=== PATIENT | female | born 1940 | race Caucasian/White ===

== ENCOUNTER 2016-09-03 20:35 | Observation (INO) | payer BC, MEDICARE ==
[~2016-09-03] VITALS: Ht 154.9 cm; Wt 75.0 kg
[~2016-09-03 20:35] MED LIST: ASPI81TA11 PO; CLEO300C2 PO; DRON400 PO; LORTA5 PO; METO25 PO; OMPR20CCR PO; SPIR25TA PO; WARF3TAB PO; ZOCO40TA PO
[2016-09-03 20:40] VITALS: BP 195/89; PULSE 69; RESP 19; TEMP 98.6; O2SAT 95
[2016-09-03] MEDS ORDERED: ONDANSETRON HCL 4 MG/2 ML VIAL IVP ONE (20:45)
[2016-09-03] MEDS ORDERED: SODIUM CHLORIDE 0.9% FLUSH 5 ML FLUSH IVF PRN (20:45)
[2016-09-03 20:49] VITALS: RESP 12; O2SAT 96
[2016-09-03 20:50] VITALS: BP 166/78; PULSE 64; RESP 12; O2SAT 95
--- NOTE | 2016-09-03 20:50 | PD ---
HPI Chief Complaint: General Weakness Time Seen by Provider: 22:00 Travel History International Travel<30 days: No Contact w/Intl Traveler<30days: No Traveled to known affect area: No History of Present Illness HPI 75-year-old female presents via EMS for evaluation of headache, generalized weakness, dizziness. She reports that she has had a headache intermittently for the past week. For the past 2 days she has been having some generalized weakness. Today symptoms worsened which prompted evaluation. She reports an aching pain in the right parietal region of her head that is constant with no alleviating factors. She endorses lightheadedness, generalized weakness, presyncope symptoms. She reports that today she was walking her house and she felt like she was going to pass out. She reports that she lay down on the couch and she was told by her son that she lost consciousness. She reports a previous sensation of tingling sensation on her lips which has since resolved. She does endorse nausea, 2 episodes of vomiting today as well. She denies any blurred vision, chest pain or shortness of breath, focal weakness or numbness or tingling in the extremities, dysarthria, abdominal pain, dysuria, recent illness, rash. The patient has a history of paroxysmal atrial fibrillation with pacemaker implantation, hypertension, CVA, TIA, migraines, on Coumadin. Her rn intensive care unit is Dr. Quinonez. Her primary care physician is Dr. Robson Suresh. She has no other complaints at this time. PFSH Past Medical History Hx Anticoagulant Therapy: Yes Arthritis: Yes (RA) Asthma: No Atrial Fibrillation: Yes Autoimmune Disease: No Blood Disorders: No Anxiety: No Depression: No Heart Rhythm Problems: Yes Cancer: No Cardiac Catheterization: Yes Cardiovascular Problems: Yes (HTN, A-FIB) High Cholesterol: Yes Chemotherapy: No Chest Pain: Yes Congestive Heart Failure: No COPD: No Cerebrovascular Accident: Yes Diabetes: No Diminished Hearing: No Endocrine: No Fibromyalgia: Yes Gastrointestinal Disorders: Yes (NAUSEA 5 DAYS) GERD: Yes Glaucoma: No Genitourinary: No Headaches: Yes (MIGRAINE) Hepatitis: No Hiatal Hernia: No Hypertension: Yes Immune Disorder: No Implanted Vascular Access Dvce: Yes Kidney Stones: No Musculoskeletal: Yes (RT ARM/LEG WEAKER THAN LEFT (NOT NEW)) Neurologic: Yes (CVA 1991, 2013) Psychiatric: No Reproductive: No Respiratory: No Immunizations Current: Yes Migraines: Yes Myocardial Infarction: No Radiation Therapy: No Renal Failure: No Seizures: No Sickle Cell Disease: No Sleep Apnea: No Thyroid Disease: No Triglycerides - High: Yes Ulcer: No PNEUMOCCOCAL Vaccine (Year): 2009 Menopausal: Yes Past Surgical History Abdominal Surgery: No AICD: No Arteriovenous Shunt: No Body Medical Devices: PACEMAKER DECEMBER 2014 Cardiac Surgery: Yes (pacer december 2014) Coronary Artery Bypass Graft: No Ear Surgery: No Endocrine Surgery: No Eye Surgery: No Genitourinary Surgery: No Gynecologic Surgery: No Insulin Pump: No Joint Replacement: No Oral Surgery: No Pacemaker: Yes Thoracic Surgery: No Other Surgery: Yes (PACEMAKER) Social History Alcohol Use: No Tobacco Use: No Substance Use: No Allergies-Medications (Allergen,Severity, Reaction): Coded Allergies: Ancef (Unverified Allergy, Severe, 09/03/16) Tetanus Toxoid (Verified Allergy, Severe, swells, 09/03/16) Vancomycin (Verified Allergy, Severe, Rash, 09/03/16) Flu Vaccine (Verified Allergy, Intermediate, PT STATES SHE RECEIVED FLU VAC THIS YEAR WITH NO REACTION, 09/03/16) MRI PRECAUTION (Verified Adverse Reaction, Severe, 09/03/16) PATIENT HAS A NON COMPATIBLE PACEMAKER THAT WAS PLACED AFTER LAST MRI ON 10/30/2014 EG Reported Meds & Prescriptions Reported Meds & Active Scripts Active Reported Warfarin 3 Mg Tab 3 Mg PO DAILY Spironolactone 25 Mg Tab 25 Mg PO BIDPC Zocor (Simvastatin) 40 Mg Tab 40 Mg PO HS Prilosec (Omeprazole) 20 Mg Cap 20 Mg PO DAILY Metoprolol Tartrate 25 Mg Tab 25 Mg PO BID Aspirin 81 Mg Chew 81 Mg CHEW DAILY Review of Systems Except as stated in HPI: all other systems reviewed are Neg Physical Exam Narrative GENERAL: Pleasant well-developed well-nourished female in no acute distress answering questions appropriately. SKIN: Warm and dry. HEAD: Atraumatic. Normocephalic. EYES: Pupils equal and round. No scleral icterus. No injection or drainage. ENT: No nasal bleeding or discharge. Mucous membranes pink and moist. NECK: Trachea midline. No JVD. CARDIOVASCULAR: Regular rate and rhythm. No murmur appreciated. RESPIRATORY: No accessory muscle use. Clear to auscultation. Breath sounds equal bilaterally. GASTROINTESTINAL: Abdomen soft, non-tender, nondistended. Hepatic and splenic margins not palpable. MUSCULOSKELETAL: No obvious deformities. No edema. NEUROLOGICAL: Awake and alert. No obvious cranial nerve deficits. Motor grossly within normal limits. Normal speech. No dysarthria. Normal finger-nose , heel to serna. Normal mesh man strength, 5 out of 5 muscle strength in dorsi and plantar flexion bilaterally. PSYCHIATRIC: Appropriate mood and affect; insight and judgment normal. Data Data Last Documented VS Vital Signs Date Time Temp Pulse Resp B/P Pulse Ox O2 Delivery O2 Flow Rate FiO2 09/03/16 20:50 64 12 166/78 95 Room Air 09/03/16 20:40 98.6 Orders Electrocardiogram (09/03/16 20:45) Complete Blood Count With Diff (09/03/16 20:45) Comprehensive Metabolic Panel (09/03/16 20:45) Magnesium (Mg) (09/03/16 20:45) Ckmb (Isoenzyme) Profile (09/03/16 20:45) Troponin I (09/03/16 20:45) Act Partial Throm Time (Ptt) (09/03/16 20:45) Prothrombin Time / Inr (Pt) (09/03/16 20:45) Ct Brain W/O Iv Contrast(Rout) (09/03/16 20:45) Ecg Monitoring (09/03/16 20:45) Iv Access Insert/Monitor (09/03/16 20:45) Oximetry (09/03/16 20:45) Sodium Chloride 0.9% Flush (Ns Flush) (09/03/16 20:45) Ondansetron Inj (Zofran Inj) (09/03/16 20:45) Morphine Inj (Morphine Inj) (09/03/16 21:15) Westergren Sedimentation Rate (09/03/16 21:17) Admit Order (Ed Use Only) (09/03/16 22:50) Labs Laboratory Tests Test 09/03/16 21:20 White Blood Count 10.2 TH/MM3 Red Blood Count 4.94 MIL/MM3 Hemoglobin 14.7 GM/DL Hematocrit 43.8 % Mean Corpuscular Volume 88.7 FL Mean Corpuscular Hemoglobin 29.7 PG Mean Corpuscular Hemoglobin 33.5 % Concent Red Cell Distribution Width 16.3 % Platelet Count 264 TH/MM3 Mean Platelet Volume 10.2 FL Neutrophils (%) (Auto) 53.9 % Lymphocytes (%) (Auto) 29.6 % Monocytes (%) (Auto) 14.9 % Eosinophils (%) (Auto) 0.4 % Basophils (%) (Auto) 1.2 % Neutrophils # (Auto) 5.5 TH/MM3 Lymphocytes # (Auto) 3.0 TH/MM3 Monocytes # (Auto) 1.5 TH/MM3 Eosinophils # (Auto) 0.0 TH/MM3 Basophils # (Auto) 0.1 TH/MM3 CBC Comment DIFF FINAL Differential Comment Erythrocyte Sedimentation Rate 4 mm/hr Prothrombin Time 23.7 SEC Prothromb Time International 2.1 RATIO Ratio Activated Partial 37.3 SEC Thromboplast Time Sodium Level 132 MEQ/L Potassium Level 3.9 MEQ/L Chloride Level 96 MEQ/L Carbon Dioxide Level 27.6 MEQ/L Anion Gap 8 MEQ/L Blood Urea Nitrogen 18 MG/DL Creatinine 1.17 MG/DL Estimat Glomerular Filtration 45 ML/MIN Rate Random Glucose 101 MG/DL Calcium Level 8.8 MG/DL Magnesium Level 2.2 MG/DL Total Bilirubin 0.4 MG/DL Aspartate Amino Transf 37 U/L (AST/SGOT) Alanine Aminotransferase 57 U/L (ALT/SGPT) Alkaline Phosphatase 90 U/L Total Creatine Kinase 59 U/L Troponin I LESS THAN 0.02 NG/ML Total Protein 7.4 GM/DL Albumin 3.5 GM/DL MDM Medical Decision Making Medical Screen Exam Complete: Yes Emergency Medical Condition: Yes Medical Record Reviewed: Yes Interpretation(s) CT of the brain reveals no acute abnormalities. EKG reveals sinus rhythm, ST depression in V5, first-degree AV block with a [place] interval of 251 INR 2.1 CMP sodium 132, chloride 96, creatinine 1.17, ALT 57 Troponin within normal limits CK within normal limits CBC unremarkable Differential Diagnosis Subarachnoid hemorrhage, migraine, syncope, arrhythmia, electrolyte abnormalities, dehydration, symptomatic anemia, CVA, TIA, ACS, aortic dissection , temporal arteritis Narrative Course 75-year-old female presents with headache for one week which has been worsening , generalized weakness, syncope this afternoon. Physical examination reveals no focal neurologic deficits. She has tenderness to palpation along the right scalp and right alevism region. No history of temporal arteritis, polymyalgia rheumatica. The patient was placed on ECG monitoring. Twelve-lead ECG was ordered. The patient was given Zofran, morphine for discomfort. CT of the brain, basic lab work has been ordered. The patient's laboratory imaging studies have been reviewed and are reassuring. The patient does have residual mild headache. Given the patient's significant comorbidities the plan is to admit the patient for observation. Procedures EKG Prior to Arrival: Yes Diagnosis Primary Impression: Syncope Qualified Code: R55 - Syncope, unspecified syncope type Additional Impressions: Cephalgia Qualified Code: R51 - Nonintractable headache, unspecified chronicity pattern , unspecified headache type Generalized weakness Admitting Information Admitting Physician Requests: Observation Gigi Hubbard Sep 03, 2016 20:50
[2016-09-03] MEDS ORDERED: SPIR25TA PO (20:55)
[2016-09-03] MEDS ORDERED: ZOCO40TA PO (20:55)
[2016-09-03] MEDS ORDERED: ASPI81CH CHEW (20:55)
[2016-09-03] MEDS ORDERED: PRIL20CA9 PO (20:55)
[2016-09-03] MEDS ORDERED: METO25TA3 PO (20:55)
[2016-09-03] MEDS ORDERED: WARF-58 PO (20:55)
[2016-09-03] MEDS ORDERED: MORPHINE SULFATE 4 MG/ML INJ IV PUSH ONE (21:15)
[2016-09-03 21:38] LABS: AUTOMATED NEUTROPHIL # 5.5 TH/MM3 (1.8-7.7); BASOPHIL # 0.1 TH/MM3 (0-0.2); BASOPHIL % 1.2 % (0.0-2.0); EOSINOPHIL % 0.4 % (0.0-4.0); HEMATOCRIT 43.8 % (35.0-46.0); HEMO FLAGS DIFF FINAL; LYMPH % 29.6 % (9.0-44.0); MEAN CELL VOLUME 88.7 FL (80.0-100.0); MEAN CORPUSCULAR HEMOGLOBIN 29.7 PG (27.0-34.0); MEAN CORPUSCULAR HGB CONC 33.5 % (32.0-36.0); MONO % 14.9 % (0.0-8.0); NEUT % 53.9 % (16.0-70.0); PLATELET COUNT 264 TH/MM3 (150-450); RED BLOOD COUNT 4.94 MIL/MM3 (4.00-5.30); RED CELL DISTRIBUTION WIDTH 16.3 % (11.6-17.2); WHITE BLOOD COUNT 10.2 TH/MM3 (4.0-11.0)
--- NOTE | 2016-09-03 21:43 | RADRPT ---
EXAM DATE/TIME: 09/03/2016 20:57 [facility] COMPARISON: CT BRAIN W/O CONTRAST, March 02, 2015, 11:58. INDICATIONS : Cephalgia. RADIATION DOSE: 46.95 CTDIvol (mGy) MEDICAL HISTORY : Cerebrovascular disease. Hypertension. Cardiovascular diseaseRheumatoid arthritis SURGICAL HISTORY : None. ENCOUNTER: Initial ACUITY: 1 day PAIN SCALE: 5/10 LOCATION: cranial TECHNIQUE: Multiple contiguous axial images were obtained of the head. Using automated exposure control and adj ustment of the mA and/or kV according to patient size, radiation dose was kept as low as reasonably a chievable to obtain optimal diagnostic quality images. FINDINGS: CEREBRUM: The ventricles are normal for age. No evidence of midline shift, mass lesion, hemorrhage or acute in farction. No extra-axial fluid collections are seen. POSTERIOR FOSSA: The cerebellum and brainstem are intact. The 4th ventricle is midline. The cerebellopontine angle i s unremarkable. EXTRACRANIAL: The visualized portion of the orbits is intact. SKULL: The calvaria is intact. No evidence of skull fracture. CONCLUSION: Normal examination for a patient of this age. No significant change has occurred. Donaldo Woods MD on September 03, 2016 at 21:40 Board Certified Radiologist. This report was verified electronically.
[2016-09-03 21:55] LABS: APTT (PATIENT) 37.3 SEC (24.3-30.1); INTERNATIONAL NORMALIZED RATIO 2.1 RATIO; PROTHROMBIN TIME - PATIENT 23.7 SEC (9.8-11.6)
[2016-09-03 22:06] VITALS: BP 156/80; PULSE 51; RESP 12; O2SAT 63; O2SAT 93
[2016-09-03 22:07] LABS: ALKALINE PHOSPHATASE 90 U/L (45-117); ALT (GPT) 57 U/L (10-53); ANION GAP 8 MEQ/L (5-15); AST (GOT) 37 U/L (15-37); BICARBONATE 27.6 MEQ/L (21.0-32.0); BLOOD UREA NITROGEN 18 MG/DL (7-18); CHLORIDE 96 MEQ/L (98-107); GLOMERULAR FILTRATION RATE 45 ML/MIN (>89); MAGNESIUM 2.2 MG/DL (1.5-2.5); POTASSIUM 3.9 MEQ/L (3.5-5.1); SODIUM (NA) 132 MEQ/L (136-145); TOTAL BILIRUBIN ADULT 0.4 MG/DL (0.2-1.0)
[2016-09-03 22:10] LABS: CREATINE KINASE 59 U/L (26-192)
--- NOTE | 2016-09-03 22:33 | PD ---
Data Data Last Documented VS Vital Signs Date Time Temp Pulse Resp B/P Pulse Ox O2 Delivery O2 Flow Rate FiO2 09/03/16 20:50 64 12 166/78 95 Room Air 09/03/16 20:40 98.6 Orders Electrocardiogram (09/03/16 20:45) Complete Blood Count With Diff (09/03/16 20:45) Comprehensive Metabolic Panel (09/03/16 20:45) Magnesium (Mg) (09/03/16 20:45) Ckmb (Isoenzyme) Profile (09/03/16 20:45) Troponin I (09/03/16 20:45) Act Partial Throm Time (Ptt) (09/03/16 20:45) Prothrombin Time / Inr (Pt) (09/03/16 20:45) Ct Brain W/O Iv Contrast(Rout) (09/03/16 20:45) Ecg Monitoring (09/03/16 20:45) Iv Access Insert/Monitor (09/03/16 20:45) Oximetry (09/03/16 20:45) Sodium Chloride 0.9% Flush (Ns Flush) (09/03/16 20:45) Ondansetron Inj (Zofran Inj) (09/03/16 20:45) Morphine Inj (Morphine Inj) (09/03/16 21:15) Westergren Sedimentation Rate (09/03/16 21:17) Labs Laboratory Tests Test 09/03/16 21:20 White Blood Count 10.2 TH/MM3 Red Blood Count 4.94 MIL/MM3 Hemoglobin 14.7 GM/DL Hematocrit 43.8 % Mean Corpuscular Volume 88.7 FL Mean Corpuscular Hemoglobin 29.7 PG Mean Corpuscular Hemoglobin 33.5 % Concent Red Cell Distribution Width 16.3 % Platelet Count 264 TH/MM3 Mean Platelet Volume 10.2 FL Neutrophils (%) (Auto) 53.9 % Lymphocytes (%) (Auto) 29.6 % Monocytes (%) (Auto) 14.9 % Eosinophils (%) (Auto) 0.4 % Basophils (%) (Auto) 1.2 % Neutrophils # (Auto) 5.5 TH/MM3 Lymphocytes # (Auto) 3.0 TH/MM3 Monocytes # (Auto) 1.5 TH/MM3 Eosinophils # (Auto) 0.0 TH/MM3 Basophils # (Auto) 0.1 TH/MM3 CBC Comment DIFF FINAL Differential Comment Prothrombin Time 23.7 SEC Prothromb Time International 2.1 RATIO Ratio Activated Partial 37.3 SEC Thromboplast Time Sodium Level 132 MEQ/L Potassium Level 3.9 MEQ/L Chloride Level 96 MEQ/L Carbon Dioxide Level 27.6 MEQ/L Anion Gap 8 MEQ/L Blood Urea Nitrogen 18 MG/DL Creatinine 1.17 MG/DL Estimat Glomerular Filtration 45 ML/MIN Rate Random Glucose 101 MG/DL Calcium Level 8.8 MG/DL Magnesium Level 2.2 MG/DL Total Bilirubin 0.4 MG/DL Aspartate Amino Transf 37 U/L (AST/SGOT) Alanine Aminotransferase 57 U/L (ALT/SGPT) Alkaline Phosphatase 90 U/L Total Creatine Kinase 59 U/L Troponin I LESS THAN 0.02 NG/ML Total Protein 7.4 GM/DL Albumin 3.5 GM/DL MDM Supervised Visit with JEROME: Yes Narrative Course I, Dr. Purdy, have reviewed the advance practice practioner's documentation and am in agreement, met with the patient face to face, made the diagnosis, and the medical decision making was done by me. *My assessment and Findings: 75-year-old female with history of A. fib on Coumadin status post pacemaker, HTN, previous CVA/TIA here with generalized weakness, dizziness, right sided headache and syncopal episode. No chest pain, shortness of breath. Patient's neurologic examination is unremarkable, nonfocal. She complains of her right occipital parietal headache, but on evaluation by our PA she did have some right temporal tenderness, not on my evaluation. Differential includes spontaneous ICH, hypercoagulability, tension headache, cluster headache, arrhythmia, electrolyte abnormality, ACS. Here patient's EKG, head CT and laboratory workup are unremarkable. ESR remains pending at the time this dictation. [facility] was paged to interrogate her pacemaker to evaluate for any arrhythmia. Patient will be admitted for telemetry monitoring and serial EKGs given her syncopal episode. Penelope Purdy MD Sep 03, 2016 22:33
--- NOTE | 2016-09-03 22:58 | HHI.HP ---
HPI Service [facility] Primary Care Physician Robson Suresh Admission Diagnosis syncope, cephalgia, generalized weakness Diagnoses: (1) Syncope Diagnosis: Principal (2) Generalized weakness Diagnosis: Principal (3) Migraine Diagnosis: Principal (4) Renal insufficiency Diagnosis: Principal (5) A-fib Diagnosis: Principal Travel History International Travel<30 Days: No Contact w/Intl Traveler <30 Da: No Traveled to Known Affected Are: No History of Present Illness This is a 75-year-old female with a PMH of A-fib on Coumadin, HTN, Migraine, h/ o TIA/CVA and Pacemaker ([facility]) who was brought to the ER by EMS secondary to syncopal episode and generalized weakness. Per pt, has had headache x2 days w/ progressive weakness. Today, episode of lightheadedness/dizziness and noted by Son to have syncopal event. No incontinence, no convulsions noted. Denies fever, chills, or SOB. On arrival, BP 195/89, HR 69, O2 sat 95% on RA, Afebrile. Currently BP 156/80, HR 51. CBC unremarkable. Chemistry essentially unremarkable. Troponin negative. ESR normal. CT Head with no acute findings. Pt follows thom/ Dr. Quinonez as outpatient. Review of Systems Other ROS: 14 point review of systems otherwise negative. Past Family Social History Past Medical History PMH: A-fib on Coumadin, HTN, Migraine, h/o TIA/CVA and Pacemaker ([facility]) Past Surgical History PAST SURGICAL HISTORY: Pacemaker Allergies: Coded Allergies: Ancef (Unverified Allergy, Severe, 09/03/16) Tetanus Toxoid (Verified Allergy, Severe, swells, 09/03/16) Vancomycin (Verified Allergy, Severe, Rash, 09/03/16) Flu Vaccine (Verified Allergy, Intermediate, PT STATES SHE RECEIVED FLU VAC THIS YEAR WITH NO REACTION, 09/03/16) MRI PRECAUTION (Verified Adverse Reaction, Severe, 09/03/16) PATIENT HAS A NON COMPATIBLE PACEMAKER THAT WAS PLACED AFTER LAST MRI ON 10/30/2014 EG Family History PAST FAMILY HISTORY: Reviewed. No h/o DM or CAD Social History PAST SOCIAL HISTORY: Negative for alcohol, tobacco or drugs. Physical Exam Vital Signs Vital Signs Date Time Temp Pulse Resp B/P Pulse Ox O2 Delivery O2 Flow Rate FiO2 09/03/16 20:50 64 12 166/78 95 Room Air 09/03/16 20:49 12 96 Room Air 09/03/16 20:43 68 19 96 Room Air 09/03/16 20:40 98.6 69 19 195/89 95 Physical Exam PE: GENERAL: Elderly white female in no acute distress. HEENT: PERRLA, EOMI. No scleral icterus or conjunctival pallor. No lid lag or facial droop. CARDIOVASCULAR: Regular rate and rhythm. No obvious murmurs to auscultation. No chest tenderness to palpation. RESPIRATORY: No obvious rhonchi or wheezing. Clear to auscultation. Breath sounds equal bilaterally. GASTROINTESTINAL: Abdomen soft, non-tender, nondistended. BS normal. MUSCULOSKELETAL: Extremities without clubbing, cyanosis, or edema. No obvious deformities. NEUROLOGICAL: Awake, alert and oriented x4. No focal neurologic deficits. Moving both upper and lower extremities spontaneously. Laboratory Laboratory Tests Test 09/03/16 21:20 White Blood Count 10.2 Red Blood Count 4.94 Hemoglobin 14.7 Hematocrit 43.8 Mean Corpuscular Volume 88.7 Mean Corpuscular Hemoglobin 29.7 Mean Corpuscular Hemoglobin 33.5 Concent Red Cell Distribution Width 16.3 Platelet Count 264 Mean Platelet Volume 10.2 Neutrophils (%) (Auto) 53.9 Lymphocytes (%) (Auto) 29.6 Monocytes (%) (Auto) 14.9 Eosinophils (%) (Auto) 0.4 Basophils (%) (Auto) 1.2 Neutrophils # (Auto) 5.5 Lymphocytes # (Auto) 3.0 Monocytes # (Auto) 1.5 Eosinophils # (Auto) 0.0 Basophils # (Auto) 0.1 CBC Comment DIFF FINAL Differential Comment Erythrocyte Sedimentation Rate 4 Prothrombin Time 23.7 Prothromb Time International 2.1 Ratio Activated Partial 37.3 Thromboplast Time Sodium Level 132 Potassium Level 3.9 Chloride Level 96 Carbon Dioxide Level 27.6 Anion Gap 8 Blood Urea Nitrogen 18 Creatinine 1.17 Estimat Glomerular Filtration 45 Rate Random Glucose 101 Calcium Level 8.8 Magnesium Level 2.2 Total Bilirubin 0.4 Aspartate Amino Transf 37 (AST/SGOT) Alanine Aminotransferase 57 (ALT/SGPT) Alkaline Phosphatase 90 Total Creatine Kinase 59 Troponin I LESS THAN 0.02 Total Protein 7.4 Albumin 3.5 Result Diagram: 09/03/16211909/03/162119 Assessment and Plan Problem List: (1) Syncope ICD Code: R55 Status: Acute (2) Generalized weakness ICD Code: R53.1 Status: Acute (3) Migraine ICD Code: G43.909 Status: Acute (4) A-fib ICD Code: I48.91 Status: Acute (5) Renal insufficiency ICD Code: N28.9 Status: Acute Assessment and Plan A/P: 1. Syncope: c/o dizziness/lightheadedness followed by syncopal event. CT Head w/ no acute findings, images reviewed by me. Echo 03/03/15 w/ EF 55-60%. Trop negative. Admit for Observation, place on telemetry, IVF for hydration, repeat labs in am. Pacemaker interrogated by [facility], noted to have multiple episodes of atrial tachycardia. Follows w/ Dr. Quinonez as outpatient, will consult for further recommendations. 2. Generalized Weakness: Likely related to dehydration and arrhythmia. IVF, check U/a to eval for UTI. 3. Migraine: h/o Migraine w/ right-sided headache x2 days, no visual changes. CT Head negative as above. ESR normal. Compazine/Benadryl prn. 4. A-fib: On Coumadin. INR therapeutic at 2.1. Resume Coumadin, repeat INR in am. Resume home Metoprolol. 5. DVT Prophylaxis: On Coumadin. 6. Social work for d/c planning as needed. 7. Case discussed w/ ER physician at length. Problem Qualifiers (1) Syncope: Qualified Code: R55 - Syncope, unspecified syncope type Olivia Garcia MD Sep 03, 2016 22:58
[2016-09-03] MEDS ORDERED: ACETAMINOPHEN/HYDROcodone 325 MG/5 MG TAB PO PRN (23:00)
[2016-09-03] MEDS ORDERED: diphenhydrAMINE HCL 50 MG/ML VIAL IV PUSH PRN (23:00)
[2016-09-03] MEDS ORDERED: BISACODYL 10 MG SUPP PR PRN (23:00)
[2016-09-03] MEDS ORDERED: MORPHINE SULFATE 4 MG/ML INJ IV PRN (23:00)
[2016-09-03] MEDS ORDERED: SODIUM CHLORIDE 0.9% FLUSH 5 ML FLUSH FLUSH PRN (23:00)
[2016-09-03] MEDS ORDERED: ONDANSETRON HCL 4 MG/2 ML VIAL IVP PRN (23:00)
[2016-09-03] MEDS ORDERED: PROCHLORPERAZINE INJ 10 MG/2 ML VIAL IVS PRN (23:00)
[2016-09-03] MEDS: SODIUM CHLOR 0.9% 1000 ML INJ 1,000 ML IV SCH (23:45)
[2016-09-04] VITALS (9 sets, daily range): BP systolic 107–141; BP diastolic 51–86; PULSE 56–87; RESP 14–21; TEMP 96.2–98.8; O2SAT 94–98
[2016-09-04 02:20] LABS: BLOOD, URINE NEG (NEG); COMMENT (UR) CULTURE INDICATED; CULTURE IF INDICATED CULTURE INDICATED; GLUCOSE,URINE NEG (NEG); KETONE, URINE NEG (NEG); NITRITE,URINE NEG (NEG); SQUAMOUS EPITHELIAL CELL URINE 1 /hpf (0-5); URINE COLOR LIGHT-YELLOW (YELLW/STRAW)
[2016-09-04 05:39] LABS: INTERNATIONAL NORMALIZED RATIO 2.4 RATIO; PROTHROMBIN TIME - PATIENT 27.2 SEC (9.8-11.6)
[2016-09-04] MEDS: METOPROLOL TARTRATE 25 MG TAB PO SCH ×2 (09:00→22:28)
[2016-09-04] MEDS: SODIUM CHLOR 0.9% 1000 ML INJ 1,000 ML IV SCH ×2 (09:22→19:26)
[2016-09-04] MEDS: SODIUM CHLORIDE 0.9% FLUSH 5 ML FLUSH FLUSH SCH ×2 (09:23→22:28)
[2016-09-04] MEDS: PANTOPRAZOLE SOD 20 MG DELAYED RELEASE TAB PO SCH (09:23)
[2016-09-04] MEDS: ASPIRIN 81 MG CHEW TAB CHEW SCH (09:23)
--- NOTE | 2016-09-04 12:12 | HHI.PR ---
Subjective Remarks Follow-up visit syncope, A. fib on Coumadin, HTN, history of TIA/CVA and PPM placement. She and seen today. Daughter at the bedside. Complaints of headache. Reports history of migraine headaches but states this is different. Headache is on the right temporal area, denies affecting vision. Reports lightheadedness is improved. Otherwise, denies SOB/ dyspnea. Denies chest pain, palpitations. Denies fevers, chills, n/v/d. Objective Vitals Vital Signs Date Time Temp Pulse Resp B/P Pulse Ox O2 Delivery O2 Flow Rate FiO2 09/04/16 11:29 96.2 60 17 107/58 95 09/04/16 07:49 96.8 56 18 110/51 96 09/04/16 03:24 98.0 60 20 119/59 95 09/04/16 03:00 60 09/04/16 01:35 60 14 141/67 94 Room Air 09/03/16 22:06 51 12 156/80 93 Room Air 09/03/16 20:50 64 12 166/78 95 Room Air 09/03/16 20:49 12 96 Room Air 09/03/16 20:43 68 19 96 Room Air 09/03/16 20:40 98.6 69 19 195/89 95 Result Diagram: 09/03/16211909/03/162119 Imaging Last Impressions Head CT 09/03/162044 Signed Impressions: Service Date/Time: Saturday, September 03, 2016 20:57 - CONCLUSION: Normal examination for a patient of this age. No significant change has occurred. Donaldo Woods MD Objective Remarks GENERAL: Patient is white female, well-developed, well-nourished in no acute distress. HEENT: PERRLA, EOMI. No scleral icterus or conjunctival pallor. No lid lag or facial droop. CARDIOVASCULAR: Regular rate and rhythm. No obvious murmurs to auscultation. No chest tenderness to palpation. RESPIRATORY: No obvious rhonchi or wheezing. Clear to auscultation. Breath sounds equal bilaterally. GASTROINTESTINAL: Abdomen soft, non-tender, nondistended. BS normal. MUSCULOSKELETAL: Extremities without clubbing, cyanosis, or edema. No obvious deformities. NEUROLOGICAL: Awake, alert and oriented x4. No focal neurologic deficits. Moving both upper and lower extremities spontaneously. A/P Problem List: (1) Syncope ICD Code: R55 Status: Acute (2) Generalized weakness ICD Code: R53.1 Status: Acute (3) Migraine ICD Code: G43.909 Status: Acute (4) A-fib ICD Code: I48.91 Status: Acute (5) Renal insufficiency ICD Code: N28.9 Status: Acute Assessment and Plan Patient is a 75-year-old white female who came into the hospital by EMS secondary to a syncopal episode by son and generalized weakness. Syncope: c/o dizziness/lightheadedness followed by syncopal event. - CT Head w/ no acute findings. Echo 03/03/15 w/ EF 55-60%. Trop negative x2 . - Pacemaker interrogated by [facility], noted to have multiple episodes of atrial tachycardia. - Follows w/ Dr. Quinonez as outpatient, will consult for further recommendations. Generalized Weakness: Likely related to dehydration and arrhythmia. - IVF hydration -UA with moderate leukocyte esterase. Pending cultures. Migraine: h/o Migraine w/ right-sided headache x2 days, no visual changes. - CT Head negative as above. ESR normal. Compazine/Benadryl prn. A-fib: On Coumadin. INR therapeutic at 2.1. - Resume Coumadin, repeat INR in am 2.4. - Resume home Metoprolol. Hyponatremia - NA 132, pending repeat sodium today - Patient was given IV fluids. DVT Prophylaxis: On Coumadin. Written by Jayden Mancia, acting as scribe for Dr. Gamboa on 09/04/16 at 11:14. Discharge Planning Not Ready. Awaiting cardiology recommendation. Attending Statement The documentation accurately reflects the work performed [id number] by mn, Dr. Gamboa on 09/04/16 at 11:14. Problem Qualifiers (1) Syncope: Qualified Code: R55 - Syncope, unspecified syncope type Jayden Almonte Sep 04, 2016 12:12 Robson Gamboa MD Sep 05, 2016 01:17
[2016-09-04 12:51] LABS: AUTOMATED NEUTROPHIL # 4.7 TH/MM3 (1.8-7.7); BASOPHIL # 0.1 TH/MM3 (0-0.2); BASOPHIL % 0.7 % (0.0-2.0); EOSINOPHIL # 0.1 TH/MM3 (0-0.4); EOSINOPHIL % 0.7 % (0.0-4.0); HEMO FLAGS DIFF FINAL; LYMPH % 17.6 % (9.0-44.0); LYMPHOCYTE # 1.3 TH/MM3 (1.0-4.8); MEAN CELL VOLUME 89.8 FL (80.0-100.0); MEAN CORPUSCULAR HEMOGLOBIN 30.1 PG (27.0-34.0); MEAN CORPUSCULAR HGB CONC 33.5 % (32.0-36.0); MONO % 17.7 % (0.0-8.0); NEUT % 63.3 % (16.0-70.0); PLATELET COUNT 201 TH/MM3 (150-450); RED BLOOD COUNT 4.24 MIL/MM3 (4.00-5.30); RED CELL DISTRIBUTION WIDTH 16.2 % (11.6-17.2); WHITE BLOOD COUNT 7.4 TH/MM3 (4.0-11.0)
--- NOTE | 2016-09-04 13:11 | EKG ---
Date Performed: 09/03/2016 Time Performed: 21:35:33 PTAGE: 75 years EKG: Sinus rhythm WITH FIRST DEGREE AV BLOCK MINIMAL ST DEPRESSION Since previous tracing, no significant change noted ABNORMAL ECG PREVIOUS TRACING : 05/04/2015 18.06 DOCTOR: Ismael Nuñez Interpretating Date/Time 09/04/2016 13:09:40
--- NOTE | 2016-09-04 13:12 | EKG ---
Date Performed: 09/04/2016 Time Performed: 03:27:04 PTAGE: 75 years EKG: ELECTRONIC ATRIAL PACEMAKER ELECTRONIC VENTRICULAR PACEMAKER Since previous tracing, no sig nificant change noted ABNORMAL RHYTHM ECG PREVIOUS TRACING : 09/03/2016 21.35 DOCTOR: Ismael Nuñez Interpretating Date/Time 09/04/2016 13:10:02
[2016-09-04 13:19] LABS: ALKALINE PHOSPHATASE 70 U/L (45-117); ALT (GPT) 54 U/L (10-53); ANION GAP 4 MEQ/L (5-15); AST (GOT) 43 U/L (15-37); BICARBONATE 29.9 MEQ/L (21.0-32.0); BLOOD UREA NITROGEN 13 MG/DL (7-18); CHLORIDE 104 MEQ/L (98-107); GLOMERULAR FILTRATION RATE 57 ML/MIN (>89); POTASSIUM 4.5 MEQ/L (3.5-5.1); SODIUM (NA) 138 MEQ/L (136-145); TOTAL BILIRUBIN ADULT 0.4 MG/DL (0.2-1.0)
[2016-09-04] MEDS: ACETAMINOPHEN 325 MG TAB PO PRN ×2 (16:29→22:41)
[2016-09-04] MEDS: WARFARIN SOD 3 MG TAB PO SCH (16:29)
[2016-09-04] MEDS ORDERED: PRAVASTATIN SOD 40 MG TAB PO SCH (21:00)
[2016-09-05 00:03] VITALS: BP 120/61; PULSE 88; RESP 21; TEMP 98; O2SAT 99
[2016-09-05 04:00] VITALS: BP 122/64; PULSE 87; RESP 21; TEMP 98.9; O2SAT 99
[2016-09-05] MEDS: SODIUM CHLOR 0.9% 1000 ML INJ 1,000 ML IV SCH ×2 (04:51→09:22)
[2016-09-05 08:00] VITALS: PULSE 60
[2016-09-05 08:48] VITALS: BP 144/67; PULSE 60; RESP 18; TEMP 97.2; O2SAT 94
[2016-09-05] MEDS: SODIUM CHLORIDE 0.9% FLUSH 5 ML FLUSH FLUSH SCH (09:00)
[2016-09-05] MEDS: METOPROLOL TARTRATE 25 MG TAB PO SCH (09:22)
[2016-09-05] MEDS: PANTOPRAZOLE SOD 20 MG DELAYED RELEASE TAB PO SCH (09:22)
[2016-09-05] MEDS: ASPIRIN 81 MG CHEW TAB CHEW SCH (09:23)
--- NOTE | 2016-09-05 12:19 | HHI.PR ---
Subjective Remarks Follow up for syncope with afib RVR. The patient denies any chest pain, palpitations, shortness of breath, lightheadedness or dizziness. She feels ready for discharge. Discussed with cardiology, increased metoprolol, cleared for discharge. She has no other medical complaints at this time. Objective Vitals Vital Signs Date Time Temp Pulse Resp B/P Pulse Ox O2 Delivery O2 Flow Rate FiO2 09/05/16 08:48 97.2 60 18 144/67 94 09/05/16 08:00 60 09/05/16 04:00 98.9 87 21 122/64 99 09/05/16 00:03 98.0 88 21 120/61 99 09/04/16 22:00 60 09/04/16 20:16 98.8 87 21 127/86 98 09/04/16 15:41 97.1 60 18 127/65 98 I/O 09/04/16 09/04/16 09/04/16 09/05/16 09/05/16 09/05/16 07:00 15:00 23:00 07:00 15:00 23:00 Intake Total 240 ml 845 ml Balance 240 ml 845 ml Intake Oral 240 ml 120 ml IV Total 725 ml # Voids 3 1 1 Result Diagram: 09/04/16 1201 09/04/16 1201 Imaging Last Impressions Head CT 09/03/162044 Signed Impressions: Service Date/Time: Saturday, September 03, 2016 20:57 - CONCLUSION: Normal examination for a patient of this age. No significant change has occurred. Donaldo Woods MD Objective Remarks GENERAL: Well-nourished, well-developed elderly female patient in [facility]. SKIN: Warm and dry. No rash. HEAD: Normocephalic. Atraumatic. NECK: Supple. Trachea midline. CARDIOVASCULAR: Regular rate and rhythm. S1, S2 noted. No murmur appreciated. RESPIRATORY: No accessory muscle use. Clear to auscultation. Breath sounds equal bilaterally. GASTROINTESTINAL: Abdomen soft, non-tender, nondistended. Normoactive bowel sounds x4. MUSCULOSKELETAL: No obvious deformities. Extremities without clubbing, cyanosis , or edema. NEUROLOGICAL: Awake and alert. No obvious cranial nerve deficits. Motor grossly within normal limits. Normal speech. PSYCHIATRIC: Appropriate mood and affect; insight and judgment normal. Medications and IVs Current Medications Medications (Trade) Dose Ordered Sig/Polina Route Start Time Stop Time Status Last Admin IV Flush 2 ml 2 ml UNSCH PRN IVF 09/03/16 20:45 (NS 1000 ml Inj) 1,000 ml @ 100 mls/hr Q10H IV 09/03/16 22:51 09/05/16 09:22 (NS Flush) 2 ml UNSCH PRN FLUSH 09/03/16 23:00 (NS Flush) 2 ml BID FLUSH 09/04/16 09:00 09/04/16 09:23 (Zofran Inj) 4 mg Q6H PRN IVP 09/03/16 23:00 (Dulcolax Supp) 10 mg DAILY PRN [place] 09/03/16 23:00 (Tylenol) 650 mg Q6H PRN PO 09/03/16 23:00 09/04/16 22:41 ([place] 5-325 Mg) 1 tab Q4H PRN PO 09/03/16 23:00 (Morphine Inj) 2 mg Q3H PRN IV 09/03/16 23:00 (Compazine Inj) 10 mg Q6H PRN IVS 09/03/16 23:00 09/04/16 02:39 (Benadryl Inj) 25 mg Q6H PRN IV PUSH 09/03/16 23:00 09/04/16 02:39 (Aspirin Chew) 81 mg DAILY CHEW 09/04/16 09:00 09/05/16 09:23 (Lopressor) 25 mg BID PO 09/04/16 09:00 09/05/16 09:22 (Protonix) 20 mg DAILY PO 09/04/16 09:00 09/05/16 09:22 (Coumadin) 3 mg DAILY@16 PO 09/04/16 16:00 09/04/16 16:29 (Pravachol) 80 mg HS PO 09/04/16 21:00 09/04/16 22:28 Urinary Catheter: No Vascular Central Line Catheter: No A/P Problem List: (1) Syncope ICD Code: R55 Status: Acute (2) Generalized weakness ICD Code: R53.1 Status: Acute (3) Migraine ICD Code: G43.909 Status: Acute (4) A-fib ICD Code: I48.91 Status: Acute (5) Renal insufficiency ICD Code: N28.9 Status: Acute Assessment and Plan 75-year-old white female who came into the hospital by EMS secondary to a syncopal episode by son and generalized weakness. Syncope: c/o dizziness/lightheadedness followed by syncopal event. - CT Head w/ no acute findings. Echo 03/03/15 w/ EF 55-60%. Trop negative x3. - Pacemaker interrogated by [facility], noted to have multiple episodes of atrial tachycardia, likely afib with RVR. - Follows w/ Dr. Quinonez, consulted, seen by Dr. Nuñez, increased metoprolol to 50mg bid, cleared for discharge, f/up with Dr. Quinonez as outpatient Generalized Weakness: Likely related to dehydration and arrhythmia. -IVF hydration -patient much improved, ambulating Abnormal UA -UA with moderate leukocyte esterase however urine culture with mixed gram positive, likely contaminants -no abx indicated Migraine: h/o Migraine w/ right-sided headache x2 days, no visual changes. - CT Head negative as above. ESR normal. Compazine/Benadryl prn. -migraine resolved A-fib: On Coumadin. INR therapeutic at 2.1. - Resume Coumadin, repeat INR in 2.4. - Resume home Metoprolol, cardiology increased dose to 50mg bid. Hyponatremia - NA 132 - Given IVF, now Na 138 -resolved DVT Prophylaxis: On Coumadin. Written by Kassandra Ruby, acting as scribe for Dr. Gomez on 09/05/16 at 15:17 The documentation accurately reflects the work performed [id number] by tn Dr. Gomez on 09/05/16 at 15:17 Discharge Planning Discharge patient to home Condition on discharge: Improved Heart Healthy/Coumadin Diet as tolerated Ad Luz Marina activity Rx written: metoprolol 50mg po bid Follow-up with primary care physician Dr. Suresh and first line supervisor Dr. Quinonez in 1 week Problem Qualifiers (1) Syncope: Qualified Code: R55 - Syncope, unspecified syncope type Kassandra Ruby PA-C Sep 05, 2016 12:19 Cherelle Gomez MD Sep 05, 2016 18:42
--- NOTE | 2016-09-05 15:04 | PD.CARD.PN ---
Subjective Subjective Remarks The patient denies recurrent syncope or near syncope since discharge. Feels "much better". Interrogation of device reveals some afib RVR. Objective Medications Current Medications Medications (Trade) Dose Ordered Sig/Polina Route Start Time Stop Time Status Last Admin IV Flush 2 ml 2 ml UNSCH PRN IVF 09/03/16 20:45 (NS 1000 ml Inj) 1,000 ml @ 100 mls/hr Q10H IV 09/03/16 22:51 09/05/16 09:22 (NS Flush) 2 ml UNSCH PRN FLUSH 09/03/16 23:00 (NS Flush) 2 ml BID FLUSH 09/04/16 09:00 09/04/16 09:23 (Zofran Inj) 4 mg Q6H PRN IVP 09/03/16 23:00 (Dulcolax Supp) 10 mg DAILY PRN [place] 09/03/16 23:00 (Tylenol) 650 mg Q6H PRN PO 09/03/16 23:00 09/04/16 22:41 ([place] 5-325 Mg) 1 tab Q4H PRN PO 09/03/16 23:00 (Morphine Inj) 2 mg Q3H PRN IV 09/03/16 23:00 (Compazine Inj) 10 mg Q6H PRN IVS 09/03/16 23:00 09/04/16 02:39 (Benadryl Inj) 25 mg Q6H PRN IV PUSH 09/03/16 23:00 09/04/16 02:39 (Aspirin Chew) 81 mg DAILY CHEW 09/04/16 09:00 09/05/16 09:23 (Lopressor) 25 mg BID PO 09/04/16 09:00 09/05/16 09:22 (Protonix) 20 mg DAILY PO 09/04/16 09:00 09/05/16 09:22 (Coumadin) 3 mg DAILY@16 PO 09/04/16 16:00 09/04/16 16:29 (Pravachol) 80 mg HS PO 09/04/16 21:00 09/04/16 22:28 Vital Signs / I&O Vital Signs Date Time Temp Pulse Resp B/P Pulse Ox O2 Delivery O2 Flow Rate FiO2 09/05/16 08:48 97.2 60 18 144/67 94 09/05/16 08:00 60 2/6/17 04:00 98.9 87 21 122/64 99 09/05/16 00:03 98.0 88 21 120/61 99 09/04/16 22:00 60 09/04/16 20:16 98.8 87 21 127/86 98 09/04/16 15:41 97.1 60 18 127/65 98 I/O 09/04/16 09/04/16 09/04/16 09/05/16 09/05/16 09/05/16 06:59 14:59 22:59 06:59 14:59 22:59 Intake Total 240 ml 845 ml 1006 ml Balance 240 ml 845 ml 1006 ml Intake Oral 240 ml 120 ml IV Total 725 ml 1006 ml # Voids 3 1 1 5 Physical Exam GENERAL: Obese female, no distress SKIN: Warm and dry. HEAD: Normocephalic. EYES: No scleral icterus. No injection or drainage. NECK: Supple, trachea midline. CARDIOVASCULAR: Regular rate and rhythm without murmurs, gallops, or rubs. RESPIRATORY: Breath sounds equal bilaterally. No accessory muscle use. GASTROINTESTINAL: Abdomen soft, non-tender, nondistended. MUSCULOSKELETAL: No cyanosis, or edema. BACK: Nontender without obvious deformity. No CVA tenderness. Laboratory Laboratory Tests Test 09/03/16 09/04/16 09/04/16 09/04/16 21:20 02:10 03:11 05:05 Monocytes (%) (Auto) 14.9 % (0.0-8.0) Monocytes # (Auto) 1.5 TH/MM3 (0-0.9) Prothrombin Time 23.7 SEC 27.2 SEC (9.8-11.6) (9.8-11.6) Activated Partial 37.3 SEC Thromboplast Time (24.3-30.1) Sodium Level 132 MEQ/L (136-145) Chloride Level 96 MEQ/L (98-107) Creatinine 1.17 MG/DL (0.50-1.00) Estimat Glomerular Filtration 45 ML/MIN (>89) Rate Alanine Aminotransferase 57 U/L (10-53) (ALT/SGPT) Troponin I LESS THAN 0.02 LESS THAN 0.02 NG/ML NG/ML (0.02-0.05) (0.02-0.05) Urine Leukocyte Esterase MOD (NEG) Urine WBC 23 /hpf (0-5) Test 09/04/16 12:01 Monocytes (%) (Auto) 17.7 % (0.0-8.0) Monocytes # (Auto) 1.3 TH/MM3 (0-0.9) Anion Gap 4 MEQ/L (5-15) Estimat Glomerular Filtration 57 ML/MIN (>89) Rate Calcium Level 8.2 MG/DL (8.5-10.1) Aspartate Amino Transf 43 U/L (15-37) (AST/SGOT) Alanine Aminotransferase 54 U/L (10-53) (ALT/SGPT) Troponin I LESS THAN 0.02 NG/ML (0.02-0.05) Total Protein 6.0 GM/DL (6.4-8.2) Albumin 2.8 GM/DL (3.4-5.0) Imaging Last [address] 09/03/162044 Signed Impressions: Service Date/Time: Saturday, September 03, 2016 20:57 - CONCLUSION: Normal examination for a patient of this age. No significant change has occurred. Donaldo Woods MD Assessment and Plan Assessment and Plan ASSESSMENT Syncope, episode preceded by "feeling like she was going to pass out". CT head normal. PPM interrogation shows AF with RVR Atrial fibrillation with hx of TIA, on Coumadin HTN Mild carotid stenosis PLAN: Will increase metoprolol to 50 mg BID. She will follow up with Dr. Quinonez next week in the office. Instructed to maintain BP log and call Dr. Quinonez's nurse, Luz Maria, with any concerns in the meantime. Assessment and plan discussed with Dr. Nuñez. Veronique Wright Sep 05, 2016 15:04
[2016-09-05] MEDS ORDERED: METO-309 PO (15:45)
--- NOTE | 2016-09-05 15:46 | HHI.DCPOC ---
Discharge Care Plan Diagnosis: (1) Syncope (2) A-fib Goals to Promote Your Health * To prevent worsening of your condition and complications * To maintain your health at the optimal level Directions to Meet Your Goals Take your medications as prescribed Follow your dietary instruction Follow activity as directed Keep your appointments as scheduled Take your immunizations and boosters as scheduled If your symptoms worsen call your PCP, if no PCP go to Urgent Care Center or Emergency Room Smoking is Dangerous to Your Health. Avoid second hand smoke Call the 24-hour hour crisis hotline for domestic abuse at Kassandra Ruby PA-C Sep 05, 2016 15:46 Cherelle Gomez MD Sep 05, 2016 18:42
[2016-09-05] MEDS: WARFARIN SOD 3 MG TAB PO SCH (16:05)
[2016-09-05] MEDS ORDERED: METOPROLOL TARTRATE 50 MG TAB PO SCH (21:00)
--- NOTE | 2016-09-06 09:32 | MB ---
cc: ISMAEL NUÑEZ M.D. DATE OF CONSULTATION 09/04/2016 Thank you, Jose. HISTORY OF PRESENT ILLNESS This patient is a very pleasant 75-year-old white female who has a history of atrial fibrillation on Coumadin, a history of stroke and a pacemaker. She had a syncopal episode at home. She states that this usually happens when her blood pressure is low. She has also had a headache with progressive weakness; however, her blood pressure on arrival in the emergency room was 195/89. She has had previous episodes of lightheadedness and dizziness. Apparently, according to the son, it was not a syncopal episode. No incontinence, no convulsions, no tongue biting, etc. PAST MEDICAL HISTORY 1. A-fib, status post [facility] pacemaker. 2. History of TIA and CVA. 3. Hypertension. 4. Migraines. PAST SURGICAL HISTORY Pacemaker. ALLERGIES TETANUS. ANCEF. VANCOMYCIN. MRI PRECAUTIONS. FAMILY HISTORY Noncontributory SOCIAL HISTORY Nonsmoker, nondrinker. No drugs. PHYSICAL EXAMINATION VITAL SIGNS: on examination pulse is 64, blood pressure 167/78. EYES: No xanthelasma. MOUTH: No cyanosis or pallor. NECK: No JVD. HEART: She had two heart sounds, no murmurs. CHEST: Clear. ABDOMEN: Soft. No hepatosplenomegaly. EXTREMITIES: Legs reveal no evidence of edema. NEUROLOGICAL: Exam grossly intact. SKIN: Intact. LABORATORY TESTS White count was 10.2, hemoglobin 13.7. Troponin less than 0.02. ASSESSMENT AND PLAN 1. Possible syncope. At this point CAT scan shows no problems. Apparent the pacemaker showed episodes of A-fib. 2. Generalized weakness. The patient was apparently diagnosed with dehydration. The cause of her syncope/dizziness is uncertain. INR was therapeutic yesterday. Continues on Coumadin for A-fib. At this point the patient appears to be stable. She will be discharged when better and note that her sodium level is low at 132. Other labs from today are currently pending. Electrocardiogram shows atrial pacing. Thank you for asking us to see this very pleasant lady. Ismael Nuñez MD, FRCP,FACC RAMAKRISHNA/DIAN Leiva: 09/04/2016/12:47 PM /9:17 AM
== END 2016-09-05 18:35 | disposition home or self-care (01) ==
LOC: NEPE 20:35 → NEDA 22:54 → NEPHCDU 09-04 02:10 → NEPFCDU 09-04 22:18
PROVIDERS: ADMIT Hospitalist; ATTEND Hospitalist
DX: R55 Syncope and collapse (principal); R53.1 Weakness; G43.909 Migraine, unspecified, not intractable, without status migrainosus; E86.0 Dehydration; I48.91 Unspecified atrial fibrillation; I47.1 Supraventricular tachycardia; N28.9 Disorder of kidney and ureter, unspecified; I10 Essential (primary) hypertension; E87.1 Hypo-osmolality and hyponatremia; I65.29 Occlusion and stenosis of unspecified carotid artery; K21.9 Gastro-esophageal reflux disease without esophagitis; M79.7 Fibromyalgia; E78.00 Pure hypercholesterolemia, unspecified; Z79.01 Long term (current) use of anticoagulants; Z86.73 Personal history of transient ischemic attack (TIA), and cerebral infarction without residual deficits
CPT/HCPCS: 70450; 80053; 81001; 82550; 83735; 84484; 85025; 85610; 85652; 85730; 87086; 93005; 96374; 96375; 99285; G0378; J0780; J1200; J2270; J2405; J7030

== ENCOUNTER 2017-03-08 13:32 | Emergency (ER) | payer BC ==
[~2017-03-08] VITALS: Ht 157.5 cm; Wt 95.5 kg
[~2017-03-08 13:32] MED LIST changes: +ASPI81CH CHEW; -ASPI81TA11 PO; -CLEO300C2 PO; -DRON400 PO; -LORTA5 PO; +METO-309 PO; -METO25 PO; -OMPR20CCR PO; +PRIL20CA9 PO; -SPIR25TA PO; +WARF-58 PO; -WARF3TAB PO
[2017-03-08 14:28] VITALS: BP 179/79; PULSE 61; PULSE 62; RESP 18; TEMP 98.1; O2SAT 95
--- NOTE | 2017-03-08 14:44 | PD ---
HPI Chief Complaint: General Weakness Time Seen by Provider: 14:39 Travel History International Travel<30 days: No Contact w/Intl Traveler<30days: No Traveled to known affect area: No History of Present Illness HPI Patient comes in complaining of generalized weakness over the past week. Patient reports some associated nausea and dizziness with this. Patient reports one episode of vomiting once that was nonbloody and nonbilious. Patient denies abdominal pain, change in bowel or bladder, numbness or tingling anywhere, chest pain, back pain, neck pain, change in vision, shortness of breath. Patient states she did develop a headache today, right parietal lobe occasionally shoots to the left parietal lobe. Patient's pain is sharp stabbing like in nature. Patient denies anything making this better or worse. Patient reports associated dizziness that comes and goes. Dizziness seems to improved with laying down is worse with standing. Patient reports she has a history of hemorrhagic CVA 2 years ago but is on Coumadin secondary to A. fib. PFSH Past Medical History Hx Anticoagulant Therapy: Yes Arthritis: Yes (RA) Asthma: No Atrial Fibrillation: Yes Autoimmune Disease: No Blood Disorders: No Anxiety: No Depression: No Heart Rhythm Problems: Yes (A-FIB) Cancer: No Cardiac Catheterization: Yes Cardiovascular Problems: Yes (HTN, A-FIB) High Cholesterol: Yes Chemotherapy: No Chest Pain: Yes Congestive Heart Failure: No COPD: No Cerebrovascular Accident: Yes Diabetes: No Diminished Hearing: No Endocrine: No Fibromyalgia: Yes Gastrointestinal Disorders: Yes (NAUSEA 5 DAYS) GERD: Yes Glaucoma: No Genitourinary: No Headaches: Yes (MIGRAINE) Hepatitis: No Hiatal Hernia: No Hypertension: Yes Immune Disorder: No Implanted Vascular Access Dvce: Yes Kidney Stones: No Musculoskeletal: Yes (RT ARM/LEG WEAKER THAN LEFT (NOT NEW)) Neurologic: Yes (CVA 1991, 2013) Psychiatric: No Reproductive: No Respiratory: No Immunizations Current: Yes Migraines: Yes Myocardial Infarction: No Radiation Therapy: No Renal Failure: No Seizures: No Sickle Cell Disease: No Sleep Apnea: No Thyroid Disease: No Triglycerides - High: Yes Ulcer: No PNEUMOCCOCAL Vaccine (Year): 2009 ?: Not Menopausal: Yes Past Surgical History Abdominal Surgery: No AICD: No Arteriovenous Shunt: No Body Medical Devices: PACEMAKER DECEMBER 2014 Cardiac Surgery: Yes (pacer december 2014) Coronary Artery Bypass Graft: No Ear Surgery: No Endocrine Surgery: No Eye Surgery: No Genitourinary Surgery: No Gynecologic Surgery: No Insulin Pump: No Joint Replacement: No Oral Surgery: No Pacemaker: Yes Thoracic Surgery: No Other Surgery: Yes (PACEMAKER) Social History Alcohol Use: No Tobacco Use: No Substance Use: No Allergies-Medications (Allergen,Severity, Reaction): Coded Allergies: Ancef (Unverified Allergy, Severe, 03/08/17) Tetanus Toxoid (Verified Allergy, Severe, swells, 03/08/17) Vancomycin (Verified Allergy, Severe, Rash, 03/08/17) Flu Vaccine (Verified Allergy, Intermediate, PT STATES SHE RECEIVED FLU VAC THIS YEAR WITH NO REACTION, 03/08/17) MRI PRECAUTION (Verified Adverse Reaction, Severe, 03/08/17) PATIENT HAS A NON COMPATIBLE PACEMAKER THAT WAS PLACED AFTER LAST MRI ON 10/30/2014 EG Reported Meds & Prescriptions Reported Meds & Active Scripts Active Reported Amiodarone (Amiodarone HCl) 200 Mg Tab 200 Mg PO AC LUNCH Spironolactone 25 Mg Tab 25 Mg PO AC LUNCH Metoprolol Tartrate 25 Mg Tab 25 Mg PO BID Omeprazole 20 Mg Tab 20 Mg PO DAILY PRN Warfarin 3 Mg Tab 1.5 Mg PO MONDAY @ 1800 Warfarin 3 Mg Tab 3 Mg PO WE @ 1800 Zocor (Simvastatin) 40 Mg Tab 40 Mg PO HS Aspirin 81 Mg Chew 81 Mg CHEW DAILY Review of Systems Except as stated in HPI: all other systems reviewed are Neg Physical Exam Narrative GENERAL: Well-developed, overly nourished, in no acute distress, and non-ill appearing. SKIN: Focused skin assessment warm and dry. HEAD: Atraumatic. Normocephalic. EYES: Pupils equal and round. EOMI. No scleral icterus. No injection or drainage. ENT: No nasal bleeding or discharge. Mucous membranes pink and moist. NECK: Trachea midline. No JVD. Supple. No nuclear rigidity. CARDIOVASCULAR: Regular rate and rhythm. No murmur appreciated. RESPIRATORY: No accessory muscle use. No respiratory distress. Clear to auscultation. Breath sounds equal bilaterally. GASTROINTESTINAL: Abdomen soft, non-tender, nondistended, and no guarding. Hepatic and splenic margins not palpable. Normal bowel sounds 4. No pulsatile mass. MUSCULOSKELETAL: No obvious deformities. No clubbing. No cyanosis. No edema. Full range of motion. NEUROLOGICAL: Awake and alert. No obvious cranial nerve deficits. Motor grossly within normal limits. Normal speech. No facial droop. Gross fall and eyebrows. Symmetrical smile. PSYCHIATRIC: Appropriate mood and affect; insight and judgment normal. Data Data Last Documented VS Vital Signs Date Time Temp Pulse Resp B/P Pulse Ox O2 Delivery O2 Flow Rate FiO2 03/08/17 18:30 62 18 126/60 96 03/08/17 16:24 97.8 Nasal Cannula 2 Orders Electrocardiogram (03/08/17 14:32) Basic Metabolic Panel (Bmp) (03/08/17 14:32) Complete Blood Count With Diff (03/08/17 14:32) Creatine Kinase (Cpk) (03/08/17 14:32) Troponin I (03/08/17 14:32) Thyroid Stimulating Hormone (03/08/17 14:32) Urinalysis - C+S If Indicated (03/08/17 14:32) Chest, Single Ap (03/08/17 14:32) Ct Brain W/O Iv Contrast(Rout) (03/08/17 14:32) Blood Glucose (03/08/17 14:32) Ecg Monitoring (03/08/17 14:32) Iv Access Insert/Monitor (03/08/17 14:32) Oximetry (03/08/17 14:32) Sodium Chloride 0.9% Flush (Ns Flush) (03/08/17 14:45) Drug Screen, Random Urine (03/08/17 14:32) Alcohol (Ethanol) (03/08/17 14:32) Labs Laboratory Tests Test 03/08/17 03/08/17 14:30 17:35 White Blood Count 8.1 TH/MM3 Red Blood Count 4.77 MIL/MM3 Hemoglobin 14.0 GM/DL Hematocrit 43.1 % Mean Corpuscular Volume 90.2 FL Mean Corpuscular Hemoglobin 29.4 PG Mean Corpuscular Hemoglobin 32.6 % Concent Red Cell Distribution Width 16.2 % Platelet Count 269 TH/MM3 Mean Platelet Volume 9.5 FL Neutrophils (%) (Auto) 60.5 % Lymphocytes (%) (Auto) 20.9 % Monocytes (%) (Auto) 16.8 % Eosinophils (%) (Auto) 0.8 % Basophils (%) (Auto) 1.0 % Neutrophils # (Auto) 4.9 TH/MM3 Lymphocytes # (Auto) 1.7 TH/MM3 Monocytes # (Auto) 1.4 TH/MM3 Eosinophils # (Auto) 0.1 TH/MM3 Basophils # (Auto) 0.1 TH/MM3 CBC Comment DIFF FINAL Differential Comment Sodium Level 133 MEQ/L Potassium Level 4.5 MEQ/L Chloride Level 100 MEQ/L Carbon Dioxide Level 26.2 MEQ/L Anion Gap 7 MEQ/L Blood Urea Nitrogen 15 MG/DL Creatinine 1.05 MG/DL Estimat Glomerular Filtration 51 ML/MIN Rate Random Glucose 87 MG/DL Calcium Level 8.7 MG/DL Total Creatine Kinase 32 U/L Troponin I LESS THAN 0.02 NG/ML Thyroid Stimulating Hormone 2.540 uIU/ML 3rd Gen Ethyl Alcohol Level LESS THAN 3 MG/DL Urine Color YELLOW Urine Turbidity CLEAR Urine pH 6.5 Urine Specific [place] 1.010 Urine Protein NEG mg/dL Urine Glucose (UA) NEG mg/dL Urine Ketones NEG mg/dL Urine Occult Blood NEG Urine Nitrite NEG Urine Bilirubin NEG Urine Urobilinogen LESS THAN 2.0 MG/DL Urine Leukocyte Esterase TRACE Urine RBC 1 /hpf Urine WBC 2 /hpf Urine Squamous Epithelial <1 /hpf Cells Microscopic Urinalysis Comment CATH-CULT NOT IND MDM Medical Decision Making Medical Screen Exam Complete: Yes Emergency Medical Condition: Yes Interpretation(s) EKG reviewed by Dr. Anaya shows sinus rhythm with ventricular rate of 61. No STEMI. Chest x-ray by the radiologist shows: Pacemaker, compensated cardiomegaly otherwise negative. CT head read by the radiologist shows: No acute process. Differential Diagnosis Vertigo, electrolyte abnormality, dehydration, CVA, near-syncope, generalized weakness, anemia, pneumonia, acute coronary syndrome, arrhythmia, other Narrative Course 1455 patient reassessed at 9 a little bit better 100%. Discussed all laboratory and radiological management patient. UA still pending. 1620 patient reassessed feeling better. Urinalysis resulted. Patient feeling better and wanting to go home. Patient in no obvious distress upon re-evaluation. All pertinent laboratory/ Radiology result(s) discussed with patient. Discussed patient with Dr. Anaya prior to discharge, who is in agreement with plan of care and disposition. Any questions/concerns in reference to patient diagnosis/ condition discussed and clarified prior to patient's discharge. Reinforced sheer importance of close follow up with patient's primary physician or primary care clinic. Instructed patient to return to ED immediately, if symptoms return/ worsen. Pt showed understanding of above instructions. Further instructions and recommendations were detailed in discharge paperwork. Pt ambulated without difficulty out of ED at discharge. Diagnosis Primary Impression: Generalized weakness Patient Instructions: General Instructions, Weakness (ED) Additional Instructions: Follow-up with your primary care physician one to 2 days for reevaluation. Return to the emergency department if symptoms get worse. Disposition: 01 DISCHARGE HOME Condition: Stable Florin Myers Mar 08, 2017 14:44
[2017-03-08] MEDS ORDERED: SODIUM CHLORIDE 0.9% FLUSH 5 ML FLUSH IV FLUSH PRN (14:45)
[2017-03-08] MEDS ORDERED: WARF-58 PO (15:07)
--- NOTE | 2017-03-08 15:13 | RADRPT ---
EXAM DATE/TIME: 03/08/2017 15:01 [facility] COMPARISON: MRI BRAIN W/O CONTRAST, October 30, 2014, 9:32. CT BRAIN W/O CONTRAST, September 03, 2016, 20:57. INDICATIONS : Headache. RADIATION DOSE: 58.02 CTDIvol (mGy) MEDICAL HISTORY : Stroke. Gastroesophageal reflux disease. SURGICAL HISTORY : None. ENCOUNTER: Initial ACUITY: 1 day PAIN SCALE: 8/10 LOCATION: Right frontal TECHNIQUE: Multiple contiguous axial images were obtained of the head. Using automated exposure control and adj ustment of the mA and/or kV according to patient size, radiation dose was kept as low as reasonably a chievable to obtain optimal diagnostic quality images. DICOM format image data is available electro nically for review and comparison. FINDINGS: CEREBRUM: The ventricles are normal for age. No evidence of midline shift, mass lesion, hemorrhage or acute in farction. No extra-axial fluid collections are seen. POSTERIOR FOSSA: The cerebellum and brainstem are intact. The 4th ventricle is midline. The cerebellopontine angle i s unremarkable. EXTRACRANIAL: The visualized portion of the orbits is intact. SKULL: The calvaria is intact. No evidence of skull fracture. CONCLUSION: Negative CT scan of the head for acute process. Daniel Pozo MD FACR on March 08, 2017 at 15:11 Board Certified Radiologist. This report was verified electronically.
[2017-03-08] MEDS ORDERED: METO25TA3 PO (15:14)
[2017-03-08] MEDS ORDERED: OMEP20TA PO (15:14)
[2017-03-08] MEDS ORDERED: AMIO200T PO (15:15)
[2017-03-08] MEDS ORDERED: SPIR25TA PO (15:15)
--- NOTE | 2017-03-08 15:15 | RADRPT ---
EXAM DATE/TIME: 03/08/2017 14:53 [facility] COMPARISON: CHEST SINGLE AP, March 02, 2015, 11:30. INDICATIONS : Short of breath and dizzy since yesterday. MEDICAL HISTORY : Cerebrovascular disease. Hypertension. Cardiovascular diseaseRheumatoid SURGICAL HISTORY : Pacemaker. ENCOUNTER: Initial ACUITY: 1 day PAIN SCORE: 0/10 LOCATION: Bilateral chest FINDINGS: Pacemaker is implanted in the left chest. The heart is minimally enlarged. The pulmonary vascularit y is normal. The portion of the bony skeleton visualized is unremarkable. CONCLUSION: Pacemaker, compensated cardiomegaly otherwise negative. Daniel Pozo MD FACR on March 08, 2017 at 15:13 Board Certified Radiologist. This report was verified electronically.
[2017-03-08 15:20] LABS: AUTOMATED NEUTROPHIL # 4.9 TH/MM3 (1.8-7.7); BASOPHIL # 0.1 TH/MM3 (0-0.2); EOSINOPHIL # 0.1 TH/MM3 (0-0.4); EOSINOPHIL % 0.8 % (0.0-4.0); HEMATOCRIT 43.1 % (35.0-46.0); HEMO FLAGS DIFF FINAL; LYMPH % 20.9 % (9.0-44.0); LYMPHOCYTE # 1.7 TH/MM3 (1.0-4.8); MEAN CELL VOLUME 90.2 FL (80.0-100.0); MEAN CORPUSCULAR HEMOGLOBIN 29.4 PG (27.0-34.0); MEAN CORPUSCULAR HGB CONC 32.6 % (32.0-36.0); MONO % 16.8 % (0.0-8.0); NEUT % 60.5 % (16.0-70.0); PLATELET COUNT 269 TH/MM3 (150-450); RED BLOOD COUNT 4.77 MIL/MM3 (4.00-5.30); RED CELL DISTRIBUTION WIDTH 16.2 % (11.6-17.2); WHITE BLOOD COUNT 8.1 TH/MM3 (4.0-11.0)
[2017-03-08 15:37] LABS: ANION GAP 7 MEQ/L (5-15); BICARBONATE 26.2 MEQ/L (21.0-32.0); BLOOD UREA NITROGEN 15 MG/DL (7-18); CHLORIDE 100 MEQ/L (98-107); GLOMERULAR FILTRATION RATE 51 ML/MIN (>89); POTASSIUM 4.5 MEQ/L (3.5-5.1); SODIUM (NA) 133 MEQ/L (136-145)
[2017-03-08 15:39] LABS: ALCOHOL LESS THAN 3 MG/DL (0-5)
[2017-03-08 15:53] LABS: CREATINE KINASE 32 U/L (26-192)
[2017-03-08 16:24] VITALS: BP 162/67; PULSE 59; RESP 18; TEMP 97.8; O2SAT 98
[2017-03-08 18:10] LABS: BLOOD, URINE NEG (NEG); GLUCOSE,URINE NEG (NEG); KETONE, URINE NEG (NEG); NITRITE,URINE NEG (NEG); PH, URINE 6.5 (5.0-8.5); SQUAMOUS EPITHELIAL CELL URINE <1 /hpf (0-5); URINE COLOR YELLOW (YELLW/STRAW)
[2017-03-08 18:12] LABS: COMMENT (UR) CATH-CULT NOT IND; CULTURE IF INDICATED CATH CULTURE NOT IND
[2017-03-08 18:30] VITALS: BP 126/60; PULSE 62; RESP 18; O2SAT 96
--- NOTE | 2017-03-09 11:32 | EKG ---
Date Performed: 03/08/2017 Time Performed: 14:33:34 PTAGE: 76 years EKG: Sinus rhythm WITH FIRST DEGREE AV BLOCK BORDERLINE LEFT AXIS DEVIATION ABNORMAL ECG Compared to prior tracing no significant change PREVIOUS TRACING DOCTOR: Nav Bass Interpretating Date/Time 03/09/2017 11:30:20
== END 2017-03-08 19:16 | disposition home or self-care (01) ==
LOC: NEPC 13:32
DX: R53.1 Weakness (principal); Z79.01 Long term (current) use of anticoagulants; E78.00 Pure hypercholesterolemia, unspecified; I10 Essential (primary) hypertension; I48.91 Unspecified atrial fibrillation; K21.9 Gastro-esophageal reflux disease without esophagitis; M79.7 Fibromyalgia; Z86.73 Personal history of transient ischemic attack (TIA), and cerebral infarction without residual deficits; Z95.0 Presence of cardiac pacemaker
CPT/HCPCS: 70450; 71010; 80048; 80307; 81001; 82550; 84443; 84484; 85025; 93005

== ENCOUNTER 2017-09-13 12:40 | Observation (INO) | payer BC ==
[2017-09-13] VITALS (9 sets, daily range): BP systolic 114–196; BP diastolic 61–91; PULSE 56–60; RESP 14–20; TEMP 97–99; O2SAT 95–98
[~2017-09-13] VITALS: Ht 160 cm; Wt 90.0 kg
[~2017-09-13 12:40] MED LIST changes: +AMIO200T PO; +ASPI-516 CHEW; -ASPI81CH CHEW; -METO-309 PO; +METO25TA3 PO; +OMEP20TA93 PO; -PRIL20CA9 PO; +SPIR25TA PO
[2017-09-13] MEDS ORDERED: WARF-58 PO (12:57)
--- NOTE | 2017-09-13 13:08 | PD ---
HPI Chief Complaint: Syncope/Near-Syncope Time Seen by Provider: 12:52 Travel History International Travel<30 days: No Contact w/Intl Traveler<30days: No Traveled to known affect area: No History of Present Illness HPI 76-year-old female patient with history of multiple medical issues, A. fib, on Coumadin, hypertension, previous CVA, presents to the ER today brought in by EMS after she had a syncopal episode while washing dishes. Her son witnessed the event and had lowered her down, patient denies any injuries. She states that she got dizzy before it happened. She apparently had a similar episode in office last week. She denies any chest pains, trouble breathing, vomiting, diarrhea, black stools, or any other issues. Modifying Factors: None Associated Signs & Symptoms: Dizziness, syncope Risk Factors: Cardiac history PFSH Past Medical History Hx Anticoagulant Therapy: Yes (WARFARIN ) Arthritis: Yes (RA) Asthma: No Atrial Fibrillation: Yes Autoimmune Disease: No Blood Disorders: No Anxiety: No Depression: No Heart Rhythm Problems: Yes (A-FIB) Cancer: No Cardiac Catheterization: Yes Cardiovascular Problems: Yes (HTN) High Cholesterol: Yes Chemotherapy: No Chest Pain: Yes Congestive Heart Failure: No COPD: No Cerebrovascular Accident: Yes (CVA X 3) Diabetes: No Diminished Hearing: No Endocrine: No Fibromyalgia: Yes Gastrointestinal Disorders: Yes (NAUSEA 5 DAYS) GERD: Yes Glaucoma: No Genitourinary: No Headaches: Yes (MIGRAINE) Hepatitis: No Hiatal Hernia: No Hypertension: Yes Immune Disorder: No Implanted Vascular Access Dvce: Yes Kidney Stones: No Musculoskeletal: Yes (RT ARM/LEG WEAKER THAN LEFT (NOT NEW)) Neurologic: Yes (CVA 1991, 2013) Psychiatric: No Reproductive: No Respiratory: No Immunizations Current: Yes Migraines: Yes Myocardial Infarction: No Radiation Therapy: No Renal Failure: No Seizures: No Sickle Cell Disease: No Sleep Apnea: No Thyroid Disease: No Triglycerides - High: Yes Ulcer: No PNEUMOCCOCAL Vaccine (Year): 2009 Menopausal: Yes : 3 Past Surgical History Abdominal Surgery: No AICD: No Arteriovenous Shunt: No Body Medical Devices: PACEMAKER DECEMBER 2014 Cardiac Surgery: Yes (PACEMAKER 2014) Coronary Artery Bypass Graft: No Ear Surgery: No Endocrine Surgery: No Eye Surgery: No Genitourinary Surgery: No Gynecologic Surgery: No Insulin Pump: No Joint Replacement: No Oral Surgery: No Pacemaker: Yes Thoracic Surgery: No Other Surgery: Yes (PACEMAKER) Social History Alcohol Use: No Tobacco Use: No Substance Use: No Allergies-Medications (Allergen,Severity, Reaction): Coded Allergies: cefazolin (Unverified Allergy, Severe, 09/13/17) tetanus toxoid, adsorbed (Unverified Allergy, Severe, swells, 09/13/17) vancomycin (Unverified Allergy, Severe, Rash, 09/13/17) Influenza Virus Vaccines (Unverified Allergy, Intermediate, PT STATES SHE RECEIVED FLU VAC THIS YEAR WITH NO REACTION, 09/13/17) MRI PRECAUTION (Verified Adverse Reaction, Severe, 09/13/17) PATIENT HAS A NON COMPATIBLE PACEMAKER THAT WAS PLACED AFTER LAST MRI ON 10/30/2014 EG Reported Meds & Prescriptions Reported Meds & Active Scripts Active Reported Warfarin 3 Mg Tab 3 Mg PO DAILY Amiodarone (Amiodarone HCl) 200 Mg Tab 200 Mg PO AC LUNCH Metoprolol Tartrate 25 Mg Tab 50 Mg PO BID Zocor (Simvastatin) 40 Mg Tab 40 Mg PO HS Aspirin 81 Mg Chew 81 Mg CHEW DAILY Review of Systems Except as stated in HPI: all other systems reviewed are Neg Physical Exam Narrative GENERAL: Well-developed elderly white female patient currently in no acute distress. Awake and oriented 3. SKIN: Focused skin assessment warm/dry. HEAD: Atraumatic. Normocephalic. EYES: Pupils equal and round. No scleral icterus. No injection or drainage. ENT: No nasal bleeding or discharge. Mucous membranes pink and moist. NECK: Trachea midline. No JVD. CARDIOVASCULAR: Regular rate and rhythm. No murmur appreciated. RESPIRATORY: No accessory muscle use. Clear to auscultation. Breath sounds equal bilaterally. GASTROINTESTINAL: Abdomen soft, non-tender, nondistended. Hepatic and splenic margins not palpable. MUSCULOSKELETAL: No obvious deformities. No clubbing. No cyanosis. No edema. NEUROLOGICAL: Awake and alert. No obvious cranial nerve deficits. Motor grossly within normal limits. Normal speech. PSYCHIATRIC: Appropriate mood and affect; insight and judgment normal. Data Data Last Documented VS Vital Signs Date Time Temp Pulse Resp B/P (MAP) Pulse Ox O2 Delivery O2 Flow Rate FiO2 09/13/17 14:33 60 14 181/79 (113) 97 Room Air 09/13/17 13:08 97.0 Orders Orders Electrocardiogram (09/13/17 13:01) Complete Blood Count With Diff (09/13/17 13:01) Comprehensive Metabolic Panel (09/13/17 13:01) Magnesium (Mg) (09/13/17 13:01) Ckmb (Isoenzyme) Profile (09/13/17 13:01) Troponin I (09/13/17 13:01) Act Partial Throm Time (Ptt) (09/13/17 13:01) Prothrombin Time / Inr (Pt) (09/13/17 13:01) Urinalysis - C+S If Indicated (09/13/17 13:01) Chest, Single Ap (09/13/17 13:01) Ct Brain W/O Iv Contrast(Rout) (09/13/17 13:01) Ecg Monitoring (09/13/17 13:01) Iv Access Insert/Monitor (09/13/17 13:) Oximetry (09/13/17 13:01) Sodium Chloride 0.9% Flush (Ns Flush) (09/13/17 13:15) Clonidine (Catapres) (09/13/17 14:15) Nitroglycerin 2% Oint (Nitroglycerin 2% (09/13/17 14:15) ^ Pacemaker (09/13/17 14:37) Consult Cardiology (09/13/17 ) Admit Order (Ed Use Only) (09/13/17 14:38) Labs Laboratory Tests Test 09/13/17 12:50 White Blood Count 6.9 TH/MM3 Red Blood Count 4.60 MIL/MM3 Hemoglobin 13.6 GM/DL Hematocrit 40.4 % Mean Corpuscular Volume 87.8 FL Mean Corpuscular Hemoglobin 29.7 PG Mean Corpuscular Hemoglobin Concent 33.8 % Red Cell Distribution Width 16.3 % Platelet Count 299 TH/MM3 Mean Platelet Volume 9.0 FL Neutrophils (%) (Auto) 57.9 % Lymphocytes (%) (Auto) 24.4 % Monocytes (%) (Auto) 15.7 % Eosinophils (%) (Auto) 0.9 % Basophils (%) (Auto) 1.1 % Neutrophils # (Auto) 4.0 TH/MM3 Lymphocytes # (Auto) 1.7 TH/MM3 Monocytes # (Auto) 1.1 TH/MM3 Eosinophils # (Auto) 0.1 TH/MM3 Basophils # (Auto) 0.1 TH/MM3 CBC Comment DIFF FINAL Differential Comment Prothrombin Time 22.3 SEC Prothromb Time International Ratio 2.2 RATIO Activated Partial Thromboplast Time 37.2 SEC Blood Urea Nitrogen 12 MG/DL Creatinine 0.98 MG/DL Random Glucose 91 MG/DL Total Protein 6.6 GM/DL Albumin 2.9 GM/DL Calcium Level 8.4 MG/DL Magnesium Level 2.2 MG/DL Alkaline Phosphatase 87 U/L Aspartate Amino Transf (AST/SGOT) 112 U/L Alanine Aminotransferase (ALT/SGPT) 135 U/L Total Bilirubin 0.4 MG/DL Sodium Level 133 MEQ/L Potassium Level 3.9 MEQ/L Chloride Level 98 MEQ/L Carbon Dioxide Level 27.8 MEQ/L Anion Gap 7 MEQ/L Estimat Glomerular Filtration Rate 55 ML/MIN Total Creatine Kinase 38 U/L Troponin I LESS THAN 0.02 NG/ML MDM Medical Decision Making Medical Screen Exam Complete: Yes Emergency Medical Condition: Yes Medical Record Reviewed: Yes Interpretation(s) EKG shows a paced rhythm at a rate of 60 bpm. No signs of acute ST changes. Laboratory Tests Test 09/13/17 12:50 Monocytes (%) (Auto) 15.7 % (0.0-8.0) Monocytes # (Auto) 1.1 TH/MM3 (0-0.9) Prothrombin Time 22.3 SEC (9.8-11.6) Activated Partial Thromboplast Time 37.2 SEC (24.3-30.1) Albumin 2.9 GM/DL (3.4-5.0) Calcium Level 8.4 MG/DL (8.5-10.1) Aspartate Amino Transf (AST/SGOT) 112 U/L (15-37) Alanine Aminotransferase (ALT/SGPT) 135 U/L (10-53) Sodium Level 133 MEQ/L (136-145) Estimat Glomerular Filtration Rate 55 ML/MIN (>89) Troponin I LESS THAN 0.02 NG/ML Last [address] 09/13/17 1301 Signed Impressions: Service Date/Time: Wednesday, September 13, 2017 13:46 - CONCLUSION: 1. Old infarct in the posterior medial aspect of the right cerebellar hemisphere. 2. Otherwise negative. Nothing acute. Dinesh Diamond MD Chest X-Ray 09/13/17 1301 Signed Impressions: Service Date/Time: Wednesday, September 13, 2017 13:09 - CONCLUSION: 1. No acute abnormality or significant interval change. Bautista Kolb MD Differential Diagnosis Syncopal episode: Dysrhythmias versus metabolic issues versus dehydration versus acute intracranial processes Narrative Course CT did not show any signs of acute intracranial processes. Lab work was fairly unremarkable. EKG shows a paced rhythm. Vital signs are stable in the ER, blood pressure did increase to bed and she was given blood pressure medication in the ER. At this point, my plan would be to admit her for further evaluation. Case was discussed with Dr. Gamboa for admission. Diagnosis Primary Impression: Syncope Admitting Information Admitting Physician Requests: Admit Syeda Singh MD Sep 13, 2017 13:07
[2017-09-13] MEDS ORDERED: SODIUM CHLORIDE 0.9% FLUSH 10 ML FLUSH IVF PRN (13:15)
[2017-09-13 13:22] LABS: BASOPHIL # 0.1 TH/MM3 (0-0.2); BASOPHIL % 1.1 % (0.0-2.0); EOSINOPHIL # 0.1 TH/MM3 (0-0.4); EOSINOPHIL % 0.9 % (0.0-4.0); HEMATOCRIT 40.4 % (35.0-46.0); HEMOGLOBIN 13.6 GM/DL (11.6-15.3); LYMPH % 24.4 % (9.0-44.0); LYMPHOCYTE # 1.7 TH/MM3 (1.0-4.8); MEAN CELL VOLUME 87.8 FL (80.0-100.0); MEAN CORPUSCULAR HEMOGLOBIN 29.7 PG (27.0-34.0); MEAN CORPUSCULAR HGB CONC 33.8 % (32.0-36.0); MONO % 15.7 % (0.0-8.0); MONOCYTE # 1.1 TH/MM3 (0-0.9); NEUT % 57.9 % (16.0-70.0); PLATELET COUNT 299 TH/MM3 (150-450); RED CELL DISTRIBUTION WIDTH 16.3 % (11.6-17.2); WHITE BLOOD COUNT 6.9 TH/MM3 (4.0-11.0)
[2017-09-13 13:33] LABS: INTERNATIONAL NORMALIZED RATIO 2.2 RATIO; PROTHROMBIN TIME - PATIENT 22.3 SEC (9.8-11.6)
--- NOTE | 2017-09-13 13:34 | RADRPT ---
EXAM DATE/TIME: 09/13/2017 13:09 [facility] COMPARISON: CHEST SINGLE AP, March 08, 2017, 14:53. INDICATIONS : Syncope. MEDICAL HISTORY : Cardiovascular disease. Hypertension Rheumatoid arthritis. SURGICAL HISTORY : Pacemaker. ENCOUNTER: Initial ACUITY: 1 day PAIN SCORE: 0/10 LOCATION: Bilateral chest FINDINGS: Stable dual-lead pacemaker in place. Redemonstration of linear apical opacities in the left lower carmen g zone, likely atelectasis/scarring. No new focal pleural or parenchymal opacities. Cardiomediastinal contours are stable. Remainder of exam is unchanged. CONCLUSION: 1. No acute abnormality or significant interval change. Bautista Kolb MD on September 13, 2017 at 13:31 Board Certified Radiologist. This report was verified electronically.
[2017-09-13 13:52] LABS: ALBUMIN 2.9 GM/DL (3.4-5.0); AST (GOT) 112 U/L (15-37); BICARBONATE 27.8 MEQ/L (21.0-32.0); BLOOD UREA NITROGEN 12 MG/DL (7-18); CALCIUM 8.4 MG/DL (8.5-10.1); CHLORIDE 98 MEQ/L (98-107); CREATININE 0.98 MG/DL (0.50-1.00); GLOMERULAR FILTRATION RATE 55 ML/MIN (>89); GLUCOSE,RANDOM 91 MG/DL (74-106); MAGNESIUM 2.2 MG/DL (1.5-2.5); SODIUM (NA) 133 MEQ/L (136-145)
--- NOTE | 2017-09-13 13:54 | RADRPT ---
EXAM DATE/TIME: 09/13/2017 13:46 [facility] COMPARISON: CT BRAIN W/O CONTRAST, March 08, 2017, 15:01. INDICATIONS : Cephalgia and dizziness for 1 week. RADIATION DOSE: 56.35 CTDIvol (mGy) MEDICAL HISTORY : Cardiovascular disease. Cerebrovascular disease. Hypertension. SURGICAL HISTORY : Pacemaker. ENCOUNTER: Initial ACUITY: 1 week PAIN SCALE: 4/10 LOCATION: cranial TECHNIQUE: Multiple contiguous axial images were obtained of the head. Using automated exposure control and adj ustment of the mA and/or kV according to patient size, radiation dose was kept as low as reasonably a chievable to obtain optimal diagnostic quality images. DICOM format image data is available electro nically for review and comparison. FINDINGS: CEREBRUM: The ventricles are normal for age. No evidence of midline shift, mass lesion, hemorrhage or acute in farction. No extra-axial fluid collections are seen. POSTERIOR FOSSA: Stable area of encephalomalacia in the posteromedial aspect of the right cerebellar hemisphere. The 4th ventricle is midline. The cerebellopontine angle is unremarkable. EXTRACRANIAL: The visualized portion of the orbits is intact. SKULL: The calvaria is intact. No evidence of skull fracture. CONCLUSION: 1. Old infarct in the posterior medial aspect of the right cerebellar hemisphere. 2. Otherwise negative. Nothing acute. Dinesh Diamond MD on September 13, 2017 at 13:50 Board Certified Radiologist. This report was verified electronically.
[2017-09-13 13:57] LABS: ALKALINE PHOSPHATASE 87 U/L (45-117); ALT (GPT) 135 U/L (10-53); TOTAL BILIRUBIN ADULT 0.4 MG/DL (0.2-1.0); TOTAL PROTEIN 6.6 GM/DL (6.4-8.2); TROPONIN I LESS THAN 0.02 NG/ML (0.02-0.05)
[2017-09-13] MEDS ORDERED: NITROGLYCERIN 2% OINT 1 GM PACKET TOPICAL ONE (14:15)
[2017-09-13] MEDS ORDERED: cloNIDine HCL 0.1 MG TAB PO ONE (14:15)
[2017-09-13] MEDS ORDERED: SODIUM CHLORIDE 0.9% FLUSH 10 ML FLUSH IV FLUSH PRN (14:45)
--- NOTE | 2017-09-13 15:01 | HHI.HP ---
HPI Service [facility] Hospitalists Primary Care Physician Lobo Mariano, DO Admission Diagnosis Syncope Diagnoses: Chief Complaint: Weakness Syncope Travel History International Travel<30 Days: No Contact w/Intl Traveler <30 Da: No Traveled to Known Affected Are: No History of Present Illness Written by Imelda Kellogg, acting as scribe for Dr. Gamboa on 09/13/17 at 14: 48. This is a 76yo female with a PMHX atrial fibrillation on Coumadin, hx of CVA with residual right sided weakness, hypertension, rheumatoid arthritis, dyslipidemia, fibromyalgia and status post [employer] pacemaker implantation who presents to [facility] ED following a syncopal episode at home. She reports sudden onset of generalized weakness while washing dishes earlier today. She went and sat down. Her son found her slumped over on the table. She reports associated tingling over the right side of her face. She denies any arrhythmia or palpitations. She endorses brief episode of midsternal chest pain last night. She reports similar episodes occurring for the past 2-3 days. She endorses intermittent headaches for the past week. She has a history of migraines and takes Maxalt. She was seen by a neurologist Dr. Durant one week ago. She reports high blood pressures at home. She denies any change in her medications. She had a similar episode in 2017 and was found to have atrial fibrillation with RVR following interrogation of her pacemaker was treated with increase in her metoprolol dose. In the ED, CT scan of the head was done showing an old infarct in the right cerebellar hemisphere no acute intracranial process noted. Review of Systems Except as stated in HPI: all other systems reviewed are Neg Past Family Social History Past Medical History Atrial fibrillation on Coumadin Hypertension hx of CVA with residual right sided weakness Rheumatoid arthritis Dyslipidemia Migraine headaches Fibromyalgia GERD Past Surgical History Pacemaker implantation Reported Medications Warfarin 3 Mg Tab 3 Mg PO DAILY Amiodarone (Amiodarone HCl) 200 Mg Tab 200 Mg PO AC LUNCH Metoprolol Tartrate 25 Mg Tab 50 Mg PO BID Zocor (Simvastatin) 40 Mg Tab 40 Mg PO HS Aspirin 81 Mg Chew 81 Mg CHEW DAILY Allergies: Coded Allergies: cefazolin (Unverified Allergy, Severe, 09/13/17) tetanus toxoid, adsorbed (Unverified Allergy, Severe, swells, 09/13/17) vancomycin (Unverified Allergy, Severe, Rash, 09/13/17) Influenza Virus Vaccines (Unverified Allergy, Intermediate, PT STATES SHE RECEIVED FLU VAC THIS YEAR WITH NO REACTION, 09/13/17) MRI PRECAUTION (Verified Adverse Reaction, Severe, 09/13/17) PATIENT HAS A NON COMPATIBLE PACEMAKER THAT WAS PLACED AFTER LAST MRI ON 10/30/2014 EG Active Ordered Medications Active Medications Amiodarone HCl (Cordarone) 200 mg AC LUNCH PO; Start 09/14/17 at 11:00; Status UNV Aspirin (Aspirin Chew) 81 mg DAILY CHEW; Start 09/14/17 at 09:00; Status UNV Clonidine (Catapres) 0.1 mg ONCE ONCE PO; Start 09/13/17 at 14:15; Stop at 14:15; Status DC Metoprolol Tartrate (Lopressor) 50 mg BID PO; Start 09/13/17 at 21:00; Status UNV Nitroglycerin (Nitroglycerin 2% Oint) 1 inch ONCE ONCE TOPICAL Last administered on 09/13/17at 14:15; Admin Dose 1 INCH; Start 09/13/17 at 14:15; Stop 09/13/17 at 14:19; Status DC Non-Formulary Medication 40 mg HS PO; Start 09/13/17 at 21:00; Status UNV Pharmacy Profile Note 0 ml @ 0 mls/hr UNSCH OTHER; Start 09/13/17 at 14:45; Status UNV Sodium Chloride (NS Flush) 2 ml BID IV FLUSH; Start 09/13/17 at 21:00; Status UNV Sodium Chloride (NS Flush) 2 ml UNSCH PRN IV FLUSH; Start 09/13/17 at 14:45; Status UNV Sodium Chloride (NS Flush) 2 ml UNSCH PRN IVF; Start 09/13/17 at 13:15 Warfarin Sodium (Coumadin) 3 mg DAILY PO; Start 09/14/17 at 09:00; Status UNV Family History CVA Social History Patient denies any tobacco use, EtOH consumption or illicit drug use. Physical Exam Vital Signs Vital Signs Date Time Temp Pulse Resp B/P (MAP) Pulse Ox O2 Delivery O2 Flow Rate FiO2 09/13/17 14:33 60 14 181/79 (113) 97 Room Air 09/13/17 14:00 60 16 196/91 (126) 97 Room Air 09/13/17 13:08 97.0 Room Air 09/13/17 12:54 98.5 56 16 172/78 (109) 97 Physical Exam GENERAL: This is a well-nourished, well-developed overweight elderly female patient, in no apparent distress. Awake and alert. No facial droop appreciated. SKIN: No rashes, ecchymoses or lesions. Cool and dry. HEAD: Atraumatic. Normocephalic. No temporal or scalp tenderness. EYES: Pupils equal round and reactive. Extraocular motions intact. No scleral icterus. No injection or drainage. ENT: Nose without bleeding or purulent drainage. Throat without erythema, tonsillar hypertrophy or exudate. Uvula midline. Airway patent. NECK: Trachea midline. No lymphadenopathy. Supple, nontender, no meningeal signs. CARDIOVASCULAR: Regular rate and rhythm without murmurs, gallops, or rubs. RESPIRATORY: Clear to auscultation. Breath sounds equal bilaterally. No wheezes , rales, or rhonchi. GASTROINTESTINAL: Abdomen soft, non-tender, nondistended. No hepato-splenomegaly , or palpable masses. No guarding. MUSCULOSKELETAL: Extremities without clubbing, cyanosis, or edema. No joint tenderness, effusion, or edema noted. No calf tenderness. NEUROLOGICAL: Awake and alert. Cranial nerves II through XII grossly intact. Motor function 4/5 left upper and lower extremities and 5.5 on the right. Normal speech. Laboratory Laboratory Tests Test 09/13/17 12:50 White Blood Count 6.9 Red Blood Count 4.60 Hemoglobin 13.6 Hematocrit 40.4 Mean Corpuscular Volume 87.8 Mean Corpuscular Hemoglobin 29.7 Mean Corpuscular Hemoglobin Concent 33.8 Red Cell Distribution Width 16.3 Platelet Count 299 Mean Platelet Volume 9.0 Neutrophils (%) (Auto) 57.9 Lymphocytes (%) (Auto) 24.4 Monocytes (%) (Auto) 15.7 Eosinophils (%) (Auto) 0.9 Basophils (%) (Auto) 1.1 Neutrophils # (Auto) 4.0 Lymphocytes # (Auto) 1.7 Monocytes # (Auto) 1.1 Eosinophils # (Auto) 0.1 Basophils # (Auto) 0.1 CBC Comment DIFF FINAL Differential Comment Prothrombin Time 22.3 Prothromb Time International Ratio 2.2 Activated Partial Thromboplast Time 37.2 Blood Urea Nitrogen 12 Creatinine 0.98 Random Glucose 91 Total Protein 6.6 Albumin 2.9 Calcium Level 8.4 Magnesium Level 2.2 Alkaline Phosphatase 87 Aspartate Amino Transf (AST/SGOT) 112 Alanine Aminotransferase (ALT/SGPT) 135 Total Bilirubin 0.4 Sodium Level 133 Potassium Level 3.9 Chloride Level 98 Carbon Dioxide Level 27.8 Anion Gap 7 Estimat Glomerular Filtration Rate 55 Total Creatine Kinase 38 Troponin I LESS THAN 0.02 Result Diagram: 09/13/17 1250 09/13/17 1250 Imaging Last Impressions Head CT 09/13/17 1301 Signed Impressions: Service Date/Time: Wednesday, September 13, 2017 13:46 - CONCLUSION: 1. Old infarct in the posterior medial aspect of the right cerebellar hemisphere. 2. Otherwise negative. Nothing acute. Dinesh Diamond MD Chest X-Ray 09/13/17 1301 Signed Impressions: Service Date/Time: Wednesday, September 13, 2017 13:09 - CONCLUSION: 1. No acute abnormality or significant interval change. MD Barbara Funk VTE Risk Assessment Barbara VTE Risk Assessment: Mod/High Risk (score >= 2) Caprini Risk Assessment Model Point Value = 1 Point Value = 2 Point Value = 3 Point Value = 5 Age 41-60 Minor surgery BMI > 25 kg/m2 Swollen legs Varicose veins or History of unexplained or recurrent spontaneous Oral contraceptives or hormone replacement Sepsis (< 1 month) Serious lung disease, including pneumonia (< 1 month) Abnormal pulmonary function Acute myocardial infarction Congestive heart failure (< 1 month) History of inflammatory bowel disease Medical patient at bed rest Age 61-74 Arthroscopic surgery Major open surgery (> 45 min) Laparoscopic surgery (> 45 min) Malignancy Confined to bed (> 72 hours) Immobilizing plaster cast Central venous access Age >= 75 History of VTE Family history of VTE Factor V Leiden Prothrombin [id number] Lupus anticoagulant Anticardiolipin antibodies Elevated serum homocysteine Heparin-induced thrombocytopenia Other congenital or acquired thrombophilia Stroke (< 1 month) Elective arthroplasty Hip, pelvis, or leg fracture Acute spinal cord injury (< 1 month) Prophylaxis Regimen Total Risk Factor Score Risk Level Prophylaxis Regimen 0-1 Low Early ambulation 2 Moderate Order ONE of the following: *Sequential Compression Device (SCD) *Heparin 5000 units SQ BID 3-4 Higher Order ONE of the following medications: *Heparin 5000 units SQ TID *Enoxaparin/Lovenox 40 mg SQ daily (WT < 150 kg, CrCl > 30 mL/min) *Enoxaparin/Lovenox 30 mg SQ daily (WT < 150 kg, CrCl > 10-29 mL/min) *Enoxaparin/Lovenox 30 mg SQ BID (WT < 150 kg, CrCl > 30 mL/min) AND/OR *Sequential Compression Device (SCD) 5 or more Highest Order ONE of the following medications: *Heparin 5000 units SQ TID (Preferred with Epidurals) *Enoxaparin/Lovenox 40 mg SQ daily (WT < 150 kg, CrCl > 30 mL/min) *Enoxaparin/Lovenox 30 mg SQ daily (WT < 150 kg, CrCl > 10-29 mL/min) *Enoxaparin/Lovenox 30 mg SQ BID (WT < 150 kg, CrCl > 30 mL/min) AND *Sequential Compression Device (SCD) Assessment and Plan Assessment and Plan 76yo female with a PMHX atrial fibrillation on Coumadin, hx of CVA with residual right sided weakness, hypertension, rheumatoid arthritis, dyslipidemia , fibromyalgia and status post [employer] pacemaker implantation who presents to [facility] ED following a syncopal episode at home. //Syncope -Consult neurology, appreciate his assistance -Consult patients graphic designer Dr. Quinonez, appreciate his assistance -Obtain carotid ultrasound and 2-D echocardiogram -Obtain EEG study -Interrogate pacemaker -Holter monitor -Obtain orthostatic BP measurement -Neuro checks q4h -Continuous cardiac monitoring -Fall and seizure precautions //Atrial fibrillation on Coumadin -Rate controlled -INR therapeutic at 2.2. Continue on current Coumadin dose. Pharmacy to manage. -Continue on amiodarone 200 mg daily and metoprolol 50 mg twice a day -Continue to monitor heart rate //Hypertension, not well controlled -Resume patient on metoprolol 50mg BID -Monitor BP and adjust treatment accordingly //Hx of previous CVA with residual right-sided weakness -Continue on aspirin daily //Transaminitis -Hold statin therapy -Avoid hepatotoxic agents -Trend LFTs //DVT prophylaxis -Patient is on Coumadin. Discussed Condition With ED physician, patient, daughter This note was transcribed by kenia Kellogg. I, Dr. Robson Gamboa personally performed the history, physical exam, and medical decision making; and confirmed the accuracy of the information in the transcribed note. Authenticated by Dr. Robson Gamboa on 09/13/17 at 16:17. Imelda Kellogg Sep 13, 2017 15:00 Robson Gamboa MD Sep 13, 2017 16:17
[2017-09-13] MEDS: METOPROLOL TARTRATE 50 MG TAB PO SCH (20:33)
[2017-09-13] MEDS: SODIUM CHLORIDE 0.9% FLUSH 10 ML FLUSH IV FLUSH SCH (20:34)
[2017-09-13] MEDS ORDERED: PRAVASTATIN SOD 80 MG TAB PO SCH (21:00)
[2017-09-13] MEDS ORDERED: traMADol HCL 50 MG TAB PO ONE (21:00)
--- NOTE | 2017-09-13 22:19 | MB ---
cc: SHARRI QUINONEZ DATE OF CONSULTATION 09/13/2017 HISTORY Ms. Ocampo is a 76-year-old white female with history of paroxysmal atrial fibrillation, syncope, TIA, sick sinus syndrome and pacemaker placement and hypertension. She presented to the emergency room after she had an episode of syncope at home. While she was washing dishes she developed dizziness, lightheadedness. She sat down and subsequently decided to get up and walk. She passed out and was found by her son. She had paresthesia of the right side of her face. She has not had any palpitations, shortness of breath or her chest pain. She has no palpitations or shortness of breath. She had brief episode of chest discomfort. She has history of migraine headaches. PAST MEDICAL HISTORY Positive for: 1. Paroxysmal atrial fibrillation. 2. Hypertension. 3. Dyslipidemia. 4. Sick sinus syndrome with symptomatic bradycardia. 5. Placement of [employer] David dual-chamber pacemaker in 2014. 6. History of rheumatoid arthritis. 7. Migraine headache. 8. Fibromyalgia. 9. Gastroesophageal reflux disease. 10. Cerebrovascular accident with residual right-sided weakness. 11. Syncope. 12. Transient ischemic attacks. 13. Degenerative disc disease. 14. History of steroid injections. 15. Cervical epidural. MEDICATIONS AT HOME Include: 1. Spironolactone. 2. Simvastatin. 3. Metoprolol. 4. Aspirin. 5. Warfarin. 6. Omeprazole. 7. Amiodarone 200 milligrams daily. ALLERGIES FLU VACCINE, TETANUS VACCINE, VANCOMYCIN, STEROIDS, BACTRIM. SOCIAL HISTORY The patient does not smoke. She does not drink alcohol. She is accompanied by her daughter. FAMILY HISTORY Negative for heart disease. REVIEW OF SYSTEMS Otherwise negative. PHYSICAL EXAMINATION VITAL SIGNS: Blood pressure 174/76, pulse 60 and regular. HEENT: Negative. NECK: 2+ carotid upstrokes. No bruits. LUNGS: Clear. HEART: Regular with no murmur, gallop or rub. ABDOMEN: Soft. No bruits. EXTREMITIES: Without edema. 2+ distal pulses. NEUROLOGIC: Grossly nonfocal. EKG was reviewed and showed atrial pacing, borderline left axis and mild interventricular conduction delay. LABORATORY DATA Hemoglobin 13.6. Potassium 3.9, creatinine 1.0, AST 112, ALT 135. Troponin less than 0.02. DIAGNOSES 1. Syncope. 2. Paroxysmal atrial fibrillation. 3. Sick sinus syndrome, status post [employer] D[employer] dual-chamber pacemaker placement with normal function of the device. 4. Hypertension. 5. History of cerebrovascular accident with residual right-sided weakness. 6. Elevated liver function tests. 7. Hypertension. 8. Dyslipidemia. 9. Mild carotid stenosis. DISPOSITION Ms. Ocampo will be monitored on telemetry. Her echocardiogram on 08/30/2017 showed preserved left ventricular systolic function, mild to moderate tricuspid regurgitation, and mild to moderate pulmonary hypertension with estimated pulmonary artery systolic pressure of 52 mmHg. Her carotid ultrasound on 08/30/2017 showed mild plaque in proximal ICA with less than 30% stenosis, mild plaque on both sides with normal antegrade vertebral flow bilaterally. I will follow Ms. Ocampo for cardiology during the hospitalization. We will continue to titrate her antihypertensive therapy. We will continue amiodarone therapy for atrial fibrillation. Neurology evaluation was requested. I will see Ms. Ocampo for followup in our office after discharge as well. The plan was discussed with the patient and her daughter. Sharri Quinonez MD OSathish/KK /6:50 PM /9:41 PM
[2017-09-14] VITALS (12 sets, daily range): BP systolic 89–167; BP diastolic 49–80; PULSE 56–64; RESP 16–20; TEMP 97.8–99; O2SAT 91–96
[2017-09-14] MEDS ORDERED: ACETAMIN 325 MG/BUTALBITAL 50 MG/CAFFEINE 40 MG TAB PO ONE (03:45)
[2017-09-14] MEDS ORDERED: ONDANSETRON HCL 4 MG/2 ML VIAL IV PUSH PRN (03:45)
[2017-09-14 07:02] LABS: AUTOMATED NEUTROPHIL # 5.5 TH/MM3 (1.8-7.7); BASOPHIL # 0.1 TH/MM3 (0-0.2); BASOPHIL % 1.1 % (0.0-2.0); EOSINOPHIL % 0.4 % (0.0-4.0); HEMATOCRIT 39.4 % (35.0-46.0); HEMOGLOBIN 13.3 GM/DL (11.6-15.3); LYMPH % 16.9 % (9.0-44.0); LYMPHOCYTE # 1.4 TH/MM3 (1.0-4.8); MEAN CELL VOLUME 88.2 FL (80.0-100.0); MEAN CORPUSCULAR HEMOGLOBIN 29.8 PG (27.0-34.0); MEAN CORPUSCULAR HGB CONC 33.8 % (32.0-36.0); MEAN PLATELET VOLUME 9.6 FL (7.0-11.0); MONO % 12.5 % (0.0-8.0); NEUT % 69.1 % (16.0-70.0); PLATELET COUNT 273 TH/MM3 (150-450); RED BLOOD COUNT 4.47 MIL/MM3 (4.00-5.30); RED CELL DISTRIBUTION WIDTH 16.3 % (11.6-17.2)
[2017-09-14 07:17] LABS: PROTHROMBIN TIME - PATIENT 20.7 SEC (9.8-11.6)
[2017-09-14 07:30] LABS: BICARBONATE 28.1 MEQ/L (21.0-32.0); CALCIUM 8.7 MG/DL (8.5-10.1); CREATININE 0.94 MG/DL (0.50-1.00)
[2017-09-14] MEDS: METOPROLOL TARTRATE 50 MG TAB PO SCH ×2 (10:17→20:50)
[2017-09-14] MEDS: ASPIRIN 81 MG CHEW TAB CHEW SCH (10:17)
[2017-09-14] MEDS: AMIODARONE 200 MG TAB PO SCH (10:18)
[2017-09-14] MEDS: SODIUM CHLORIDE 0.9% FLUSH 10 ML FLUSH IV FLUSH SCH ×2 (10:19→20:50)
[2017-09-14 10:37] LABS: ALBUMIN 2.9 GM/DL (3.4-5.0); DIRECT BILIRUBIN ADULT 0.1 MG/DL (0.0-0.2)
[2017-09-14 10:39] LABS: INDIRECT BILIRUBIN 0.3 MG/DL (0.0-0.8); TOTAL BILIRUBIN ADULT 0.4 MG/DL (0.2-1.0); TOTAL PROTEIN 6.4 GM/DL (6.4-8.2)
[2017-09-14] MEDS ORDERED: SUMAtriptan SUCCINATE 25 MG TAB PO ONE (12:00)
--- NOTE | 2017-09-14 12:30 | RADRPT ---
EXAM DATE/TIME: 09/14/2017 10:56 [facility] COMPARISON: No previous studies available for comparison. INDICATIONS : Abnormal labs. MEDICAL HISTORY : Hypercholesterolemia. Arthritis. CVA. Syncope. Migraine. Anticoagulant therapy. A.FIB. Hypertensi on. GERD. SURGICAL HISTORY : Cardiac cath. Pacemaker. ENCOUNTER: Initial ACUITY: 1 day PAIN SCORE: 3/10 LOCATION: Right upper quadrant MEASUREMENTS: LIVER: 11.4 cm length COMMON DUCT: 4 mm RIGHT KIDNEY: 11 x 5.1 x 5.0 cm SPLEEN: 8.0 cm length FINDINGS: LIVER: Normal echotexture without concerning focal lesion or ductal dilatation. There is a simple appearing mildly bilobed cyst in the left lobe measuring 2.6 cm. COMMON DUCT: No intraluminal mass or stone visualized. GALLBLADDER: Contains no stones, demonstrates no wall thickening or pericholecystic fluid. PANCREAS: The visualized portions are within normal limits. RIGHT KIDNEY: No hydronephrosis, stone or mass. SPLEEN: No focal lesion. CONCLUSION: 1. No acute finding is identified. 2. There is a simple appearing cyst in the left lobe of the liver measuring 2.6 cm. Lobo Holbrook MD on September 14, 2017 at 12:25 Board Certified Radiologist. This report was verified electronically.
--- NOTE | 2017-09-14 14:40 | RADRPT ---
EXAM DATE/TIME: 09/14/2017 14:15 [facility] COMPARISON: No previous studies available for comparison. INDICATIONS : Neck pain, no known injury. MEDICAL HISTORY : hx collapsed cervical disk SURGICAL HISTORY : None. ENCOUNTER: Initial ACUITY: 3 days PAIN SCORE: 8/10 LOCATION: neck FINDINGS: Flexion and extension views of the cervical spine were performed. The alignment of the cervical vert ebral bodies is maintained in flexion and extension and there is no evidence of subluxation. The pre vertebral soft tissues are normal in thickness. Degenerative disease with spondylosis is noted at C3-4, C4-5 and C5-6 and C6-7. CONCLUSION: Degenerative disease with spondylosis. Stable cervical alignment during flexion and extension. Dionicio Skaggs MD on September 14, 2017 at 14:37 Board Certified Radiologist. This report was verified electronically.
--- NOTE | 2017-09-14 15:02 | EKG ---
Date Performed: 09/13/2017 Time Performed: 13:03:51 PTAGE: 76 years EKG: ELECTRONIC ATRIAL PACEMAKER BORDERLINE LEFT AXIS DEVIATION MODERATE INTRAVENTRICULAR CONDUC TION DELAY ABNORMAL RHYTHM ECG PREVIOUS TRACING : 09/13/2017 13.02 Paced rhythm appears to be new since prior tracing. DOCTOR: Abel Zaragoza Interpretating Date/Time 09/14/2017 15:01:31
--- NOTE | 2017-09-14 15:49 | HHI.PR ---
Subjective Remarks This morning patient complaining of continued headache for which she was recently started on Maxalt as an outpatient 1 week ago. She reports nausea and nonbloody vomiting secondary to this. Objective Vital Signs Date Time Temp Pulse Resp B/P (MAP) Pulse Ox O2 Delivery O2 Flow Rate FiO2 09/14/17 12:29 60 09/14/17 10:54 97.9 58 16 121/59 (79) 95 09/14/17 07:23 56 09/14/17 07:18 98.4 60 16 138/70 (92) 95 09/14/17 05:26 17 09/14/17 04:56 60 09/14/17 03:47 97.8 61 18 167/79 (108) 93 09/14/17 00:00 60 09/13/17 23:34 98.5 60 18 126/64 (84) 95 09/13/17 23:08 18 09/13/17 20:04 99.0 60 18 114/61 (78) 95 09/13/17 20:00 60 09/13/17 17:34 97.9 60 18 174/76 (108) 98 09/13/17 16:12 09/13/17 15:59 60 18 169/73 (105) 60 20 155/70 (98) 53 20 169/70 (103) Result Diagram: 09/14/1760409/14/17604 Objective Remarks GENERAL: Patient lying in bed. Appears uncomfortable. Alert and oriented 3. SKIN: Warm and dry. HEAD: Normocephalic. EYES: No scleral icterus. No injection or drainage. NECK: Supple, trachea midline. No JVD. CARDIOVASCULAR: Regular rate and rhythm without murmurs, gallops, or rubs. RESPIRATORY: Breath sounds equal bilaterally. No accessory muscle use. GASTROINTESTINAL: Abdomen soft, non-tender, nondistended. MUSCULOSKELETAL: No cyanosis, or edema. BACK: Nontender without obvious deformity. No CVA tenderness. A/P Assessment and Plan 76yo female with a PMHX atrial fibrillation on Coumadin, hx of CVA with residual right sided weakness, hypertension, rheumatoid arthritis, dyslipidemia , fibromyalgia and status post [employer] David pacemaker implantation who presents to [facility] ED following a syncopal episode at home. 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 Quinonez, appreciate his assistance -Obtain carotid ultrasound and 2-D echocardiogram -Obtain EEG study -Interrogate pacemaker -Holter monitor -Obtain orthostatic BP measurement -Neuro checks q4h -Continuous cardiac monitoring -Fall and seizure precautions = Awaiting EEG. Appreciate cardiology and neurology recommendations. Pending neurology and cardiology clearance, as well as improvement in nausea and vomiting.. //Intractable migraine headache. With nausea vomiting this morning Consult neurology. Will order Imitrex 1. Appreciate assistance. //Transaminitis. Simple cyst seen on liver ultrasound. Hepatitis profile pending.-Follow with primary care for simple cyst. -Hold statin therapy -Avoid hepatotoxic agents -Trend LFTs improving //Atrial fibrillation on Coumadin -Rate controlled -INR therapeutic at 2.2. Continue on current Coumadin dose. Pharmacy to manage. -Continue on amiodarone 200 mg daily and metoprolol 50 mg twice a day -Continue to monitor heart rate //Hypertension, not well controlled -Resume patient on metoprolol 50mg BID -Monitor BP and adjust treatment accordingly //Hx of previous CVA with residual right-sided weakness -Continue on aspirin daily //DVT prophylaxis -Patient is on Coumadin. Discharge Planning Pending improvement in nausea and vomiting, headache. Pending cardiology and neurology clearance. Robson Gamboa MD Sep 14, 2017 15:49
[2017-09-14] MEDS: WARFARIN SOD 3 MG TAB PO SCH (17:14)
--- NOTE | 2017-09-14 17:23 | MB ---
cc: JOSUÉ SALGADO M.D. DATE OF CONSULTATION 09/14/17 A 76-year-old woman who I had seen back in 2003 with a history of hypertension, hypercholesterolemia. She had palpitations, headaches in the back of her head chronically, TIA in the past, several other spells, memory problems. It was found later that she had atrial fibrillation. She subsequently had a pacemaker put on. She had a right facial droop when I saw her. CT scan was negative. Further workup was done. I saw her again in 2010. I noted she had had an IN and chronic headaches. She tried Topamax and Depakote which did not help. Maxalt helps her and she still takes Maxalt. She had a syncopal episode at that time in 2010. FAMILY HISTORY Negative for cancer or seizure. Positive stroke in her mother. SOCIAL HISTORY She is not a smoker or drinker. Nevertheless, she has had a headache since Monday, the back of her head and the top part on the right. She has headaches about twice a week, otherwise, may have a mild headache occasionally. She takes Maxalt and that seems to help. The headaches, however, are a 10/10 when they come on and throbbing. She was also admitted here. She had had a syncopal episode at home, was up washing the dishes, went and sat down, slumped over the table. She tells me she feels very lightheaded on standing and that is not uncommon for her. When she woke up, she had a little bit of tingling on her right side of her face for about 10 minutes and then it went away. She had some chest pain the day prior. She sees Dr. Durant outpatient. She has known atrial fibrillation. She has known pacemaker, rheumatoid arthritis, dyslipidemia, fibromyalgia, residual right-sided weakness, hypertension, stroke in the past, fibromyalgia and GERD. MEDICATIONS At home, 1. Coumadin. 2. Amiodarone 3. Metoprolol 4. Zocor 5. Aspirin 81 mg ALLERGIES CEFAZOLIN TETANUS TOXOID VANCOMYCIN INFLUENZA VACCINE The pacemaker evidently is non-compatible with an MRI scanner. NEUROLOGIC EXAM Since rhythm, afebrile, 58, 16, 121/59, standing blood pressure done 169/70, although she tells me at other times she has had some low standing blood pressures standing up but I do not see them documented here. NECK: There were no carotid bruits. HEART: Regular rhythm. I did not detect a murmur. Pupils are equal, visual jack are full. Extraocular movements intact without nystagmus. Face symmetric with normal sensation. Tongue was midline. There is no drift. She had normal strength in upper and lower extremities bilaterally. DTRs are trace throughout. Toes are downgoing bilaterally. Pinprick is intact throughout. She is not ataxic on [id number]. Temples are very tender bilaterally today. LABORATORY DATA CBC is normal. She had a normal sed rate earlier this month of 4. She had a few UAs in the past that have been slightly positive. Her INR yesterday was 2.2. Basic metabolic profile - sodium 132 otherwise essentially normal. LFTs elevated to 137 ALT, 193 AST, alk phos is normal. CPK and troponin are negative. B12 was normal back in 2010. TSH was normal in February of last year. Homocysteine has been negative in the past. LDL cholesterol was been normal, last checked in 2014. IMAGING STUDIES She had an ultrasound of her liver that was negative. She had a chest x-ray read as normal. She had a CAT scan of her brain - old infarct on the right cerebellum, otherwise, negative. Review of those films - There is an overall encephalomalacia on the medial aspect of the right cerebellum, some white matter changes bilaterally. No other definite infarct. She had a carotid ultrasound done in 2014 which showed minimal plaque. She had an MRI of her brain done in 2014 that showed no acute infarct, just the old right cerebellar infarct. MRA of the [place] was normal at that time. MRA of the neck - moderate right vertebral artery stenosis. The left vertebral artery was patent. She had another MRI of her neck in 2003 that was read as normal, vertebral arteries were read as normal. It sounds like she probably has some orthostatic hypotension. Cardiology is on the case. They note she has a history of sick sinus syndrome and, thus, the pacer and her echocardiogram showed normal EF in July. Her carotid ultrasound showed mild plaque on the right, less than 30%, on August 30, 2017. She had an EEG done back in 2010 that was normal and another one in 2003 that was normal. IMPRESSION Syncopal episode. We should check some orthostatics here and interrogate her pacer as that has not been done. I have recommended we could check an EEG, some standing blood pressures. Due to the tingling on her face when she woke up, I would defer to the med team but they could consider switching her Coumadin to Eliquis for stroke prophylaxis with the A. fib. Botox could be considered for her headache by Dr. Durant as an outpatient. With the history of rheumatoid, we will just check the x-ray of her cervical spine and with the temporal tenderness a CRP, although a recent sed rate was normal. We will have PT ambulate her. Overall, I thought she looked well neurologically. MD VELIA Gutierrez/ /1:10 PM /5:01 PM
--- NOTE | 2017-09-14 19:34 | PD.CARD.PN ---
Subjective Subjective Remarks No CP or SOB, mild dizziness Objective Medications Current Medications Medications (Trade) Dose Ordered Sig/Polina Route Start Time Stop Time Status Last Admin (NS Flush) 2 ml UNSCH PRN IV FLUSH 09/13/17 14:45 (NS Flush) 2 ml BID IV FLUSH 09/13/17 21:00 09/14/17 10:19 (Cordarone) 200 mg AC LUNCH PO 09/14/17 11:00 09/14/17 10:18 (Aspirin Chew) 81 mg DAILY CHEW 09/14/17 09:00 09/14/17 10:17 (Lopressor) 50 mg BID PO 09/13/17 21:00 09/14/17 10:17 (Coumadin) 3 mg DAILY@1600 PO 09/14/17 16:00 09/14/17 17:14 (Pravachol) 80 mg HS PO 09/13/17 21:00 Future Hold Pharmacy Profile Note 0 ml @ 0 mls/hr UNSCH OTHER 09/13/17 14:45 (Zofran Inj) 4 mg Q6HR PRN IV PUSH 09/14/17 03:45 09/14/17 04:09 Vital Signs / I&O Vital Signs Date Time Temp Pulse Resp B/P (MAP) Pulse Ox O2 Delivery O2 Flow Rate FiO2 09/14/17 17:44 166/80 (108) 160/68 (98) 148/66 (93) 09/14/17 16:00 57 09/14/17 15:45 98.6 58 18 136/70 (92) 96 09/14/17 12:29 60 09/14/17 10:54 97.9 58 16 121/59 (79) 95 09/14/17 07:23 56 09/14/17 07:18 98.4 60 16 138/70 (92) 95 09/14/17 05:26 17 09/14/17 04:56 60 09/14/17 03:47 97.8 61 18 167/79 (108) 93 09/14/17 00:00 60 09/13/17 23:34 98.5 60 18 126/64 (84) 95 09/13/17 23:08 18 09/13/17 20:04 99.0 60 18 114/61 (78) 95 09/13/17 20:00 60 Physical Exam GENERAL: In NAD. SKIN: Warm and dry. HEAD: Normocephalic. EYES: No scleral icterus. No injection or drainage. NECK: Supple, trachea midline. No JVD or lymphadenopathy. CARDIOVASCULAR: Regular rate and rhythm without murmurs, gallops, or rubs. RESPIRATORY: Breath sounds equal bilaterally. No accessory muscle use. GASTROINTESTINAL: Abdomen soft, non-tender, nondistended. MUSCULOSKELETAL: No cyanosis, or edema. Pacer site stable. Laboratory Laboratory Tests Test 09/14/17 06:05 09/14/17 12:00 White Blood Count 8.0 TH/MM3 Red Blood Count 4.47 MIL/MM3 Hemoglobin 13.3 GM/DL Hematocrit 39.4 % Mean Corpuscular Volume 88.2 FL Mean Corpuscular Hemoglobin 29.8 PG Mean Corpuscular Hemoglobin Concent 33.8 % Red Cell Distribution Width 16.3 % Platelet Count 273 TH/MM3 Mean Platelet Volume 9.6 FL Neutrophils (%) (Auto) 69.1 % Lymphocytes (%) (Auto) 16.9 % Monocytes (%) (Auto) 12.5 % Eosinophils (%) (Auto) 0.4 % Basophils (%) (Auto) 1.1 % Neutrophils # (Auto) 5.5 TH/MM3 Lymphocytes # (Auto) 1.4 TH/MM3 Monocytes # (Auto) 1.0 TH/MM3 Eosinophils # (Auto) 0.0 TH/MM3 Basophils # (Auto) 0.1 TH/MM3 CBC Comment DIFF FINAL Differential Comment Prothrombin Time 20.7 SEC Prothromb Time International Ratio 2.0 RATIO Blood Urea Nitrogen 12 MG/DL Creatinine 0.94 MG/DL Random Glucose 112 MG/DL Calcium Level 8.7 MG/DL Sodium Level 132 MEQ/L Potassium Level 3.9 MEQ/L Chloride Level 97 MEQ/L Carbon Dioxide Level 28.1 MEQ/L Anion Gap 7 MEQ/L Estimat Glomerular Filtration Rate 58 ML/MIN Total Bilirubin 0.4 MG/DL Direct Bilirubin 0.1 MG/DL Indirect Bilirubin 0.3 MG/DL Aspartate Amino Transf (AST/SGOT) 93 U/L Alanine Aminotransferase (ALT/SGPT) 137 U/L Alkaline Phosphatase 82 U/L C-Reactive Protein 0.80 MG/DL Total Protein 6.4 GM/DL Albumin 2.9 GM/DL Imaging Last 24 hours Impressions Liver Ultrasound 2/15/18 0000 Signed Impressions: Service Date/Time: August 10:56 - CONCLUSION: 1. No acute finding is identified. 2. There is a simple appearing cyst in the left lobe of the liver measuring 2.6 cm. Lobo Holbrook MD Cervical Spine X-Ray 09/14/17 0000 Signed Impressions: Service Date/Time: August 14:15 - CONCLUSION: Degenerative disease with spondylosis. Stable cervical alignment during flexion and extension. Dionicio Skaggs MD Assessment and Plan Problem List: (1) Syncope ICD Codes: R55 - Syncope Status: Acute (2) Atrial fibrillation ICD Codes: I48.91 - Atrial fibrillation Status: Chronic (3) SSS (sick sinus syndrome) ICD Codes: I49.5 - Sick sinus syndrome (4) Pacemaker ICD Codes: Z95.0 - Presence of cardiac pacemaker Assessment and Plan Pacemaker eval w nl fx of the device and episodes of paroxysmal a fib. Continue current program. Increase activity, PT. Neuro eval in progress. Will schedule outpt f/u after discharge. Sharri Quinonez MD Sep 14, 2017 19:34
--- NOTE | 2017-09-14 22:27 | MG ---
cc: KULDIP ROJAS Lab No: [id number] Date: 09/13/17 Age: Sex: F Race: TECHNIQUE A 17 channel EEG. DESCRIPTION The background rhythm is that of a symmetrical alpha rhythm. Frequencies are 8-9 Hz, amplitude is 10-20 microvolts. Occasional eye movement and muscle artifact is identified. There are no lateralizing features seen. There are no epileptiform discharges. Photic stimulation was done in a stepwise fashion with a normal driving response. INTERPRETATION Normal EEG. MD ROSE Contreras/ /8:30 PM /10:13 PM
[2017-09-15] VITALS (8 sets, daily range): BP systolic 102–124; BP diastolic 55–71; PULSE 57–73; RESP 16–20; TEMP 96.4–98.2; O2SAT 95–96
[2017-09-15 07:03] LABS: INTERNATIONAL NORMALIZED RATIO 1.7 RATIO; PROTHROMBIN TIME - PATIENT 17.4 SEC (9.8-11.6)
[2017-09-15 07:09] LABS: AUTOMATED NEUTROPHIL # 3.8 TH/MM3 (1.8-7.7); BASOPHIL # 0.1 TH/MM3 (0-0.2); BASOPHIL % 0.8 % (0.0-2.0); EOSINOPHIL # 0.1 TH/MM3 (0-0.4); EOSINOPHIL % 1.3 % (0.0-4.0); HEMATOCRIT 37.8 % (35.0-46.0); HEMOGLOBIN 12.8 GM/DL (11.6-15.3); LYMPH % 28.3 % (9.0-44.0); LYMPHOCYTE # 2.1 TH/MM3 (1.0-4.8); MEAN CELL VOLUME 88.5 FL (80.0-100.0); MEAN CORPUSCULAR HEMOGLOBIN 29.9 PG (27.0-34.0); MEAN CORPUSCULAR HGB CONC 33.8 % (32.0-36.0); MEAN PLATELET VOLUME 9.4 FL (7.0-11.0); MONO % 17.2 % (0.0-8.0); MONOCYTE # 1.2 TH/MM3 (0-0.9); NEUT % 52.4 % (16.0-70.0); PLATELET COUNT 258 TH/MM3 (150-450); RED BLOOD COUNT 4.27 MIL/MM3 (4.00-5.30); RED CELL DISTRIBUTION WIDTH 16.3 % (11.6-17.2); WHITE BLOOD COUNT 7.3 TH/MM3 (4.0-11.0)
[2017-09-15 07:31] LABS: ALBUMIN 2.6 GM/DL (3.4-5.0); BICARBONATE 28.7 MEQ/L (21.0-32.0); CALCIUM 8.1 MG/DL (8.5-10.1); CREATININE 1.01 MG/DL (0.50-1.00); DIRECT BILIRUBIN ADULT 0.1 MG/DL (0.0-0.2); MAGNESIUM 2.2 MG/DL (1.5-2.5); PHOSPHORUS 3.1 MG/DL (2.5-4.9)
[2017-09-15 07:32] LABS: INDIRECT BILIRUBIN 0.3 MG/DL (0.0-0.8); TOTAL BILIRUBIN ADULT 0.4 MG/DL (0.2-1.0); TOTAL PROTEIN 6.1 GM/DL (6.4-8.2)
--- NOTE | 2017-09-15 07:38 | HHI.PR ---
Subjective Remarks afib no meyer feels better this am Objective Vital Signs Date Time Temp Pulse Resp B/P (MAP) Pulse Ox O2 Delivery O2 Flow Rate FiO2 09/15/17 03:34 98.1 57 20 102/57 (72) 95 09/15/17 00:05 59 09/14/17 22:56 98.6 57 20 119/62 (81) 92 09/14/17 19:31 99.0 64 20 122/59 (80) 96 118/62 (80) 89/49 (62) 09/14/17 17:44 166/80 (108) 160/68 (98) 148/66 (93) 09/14/17 16:00 57 09/14/17 15:45 98.6 58 18 136/70 (92) 96 09/14/17 12:29 60 09/14/17 10:54 97.9 58 16 121/59 (79) 95 I/O 09/14/17 09/14/17 09/14/17 09/15/17 09/15/17 09/15/17 07:00 15:00 23:00 07:00 15:00 23:00 Intake Total 240 ml Balance 240 ml Intake Oral 240 ml # Voids 1 Result Diagram: 09/15/17 0505 09/15/17 0505 Objective Remarks temples nontender this am smeech nl no new spells feels much better Assessment and Plan Assessment and Plan imp crp ok labs nl eeg nl c spine xray no instability two standing bp ok one was low at 89/47 could dc neuro leung she could use thigh high teds consider change to jax mathew for ? botox meyer rx ? some bp med change for intermittent [place] Satish Tanner MD Sep 15, 2017 07:38
[2017-09-15] MEDS: SODIUM CHLORIDE 0.9% FLUSH 10 ML FLUSH IV FLUSH SCH (08:38)
[2017-09-15] MEDS: METOPROLOL TARTRATE 50 MG TAB PO SCH ×2 (08:38→11:27)
[2017-09-15] MEDS: ASPIRIN 81 MG CHEW TAB CHEW SCH (08:38)
[2017-09-15] MEDS ORDERED: ELASMIS (08:52)
--- NOTE | 2017-09-15 10:44 | HHI.PR ---
Subjective Remarks Patient seen this morning around 9 AM. Says she is feeling all right. Reports headache is improved. Nausea has resolved. Objective Vital Signs Date Time Temp Pulse Resp B/P (MAP) Pulse Ox O2 Delivery O2 Flow Rate FiO2 09/15/17 08:36 98.2 58 20 103/55 (71) 96 09/15/17 03:34 98.1 57 20 102/57 (72) 95 09/15/17 00:05 59 09/14/17 22:56 98.6 57 20 119/62 (81) 92 09/14/17 19:31 99.0 64 20 122/59 (80) 96 118/62 (80) 89/49 (62) 09/14/17 17:44 166/80 (108) 160/68 (98) 148/66 (93) 09/14/17 16:00 57 09/14/17 15:45 98.6 58 18 136/70 (92) 96 09/14/17 12:29 60 09/14/17 10:54 97.9 58 16 121/59 (79) 95 I/O 09/14/17 09/14/17 09/14/17 09/15/17 09/15/17 09/15/17 07:00 15:00 23:00 07:00 15:00 23:00 Intake Total 240 ml Balance 240 ml Intake Oral 240 ml # Voids 1 Result Diagram: 09/15/17 0505 09/15/17 0505 Objective Remarks GENERAL: Patient lying in bed. Appears comfortable. Alert and oriented 3. SKIN: Warm and dry. HEAD: Normocephalic. EYES: No scleral icterus. No injection or drainage. NECK: Supple, trachea midline. No JVD. CARDIOVASCULAR: Regular rate and rhythm without murmurs, gallops, or rubs. RESPIRATORY: Breath sounds equal bilaterally. No accessory muscle use. GASTROINTESTINAL: Abdomen soft, non-tender, nondistended. MUSCULOSKELETAL: No cyanosis, or edema. BACK: Nontender without obvious deformity. No CVA tenderness. A/P Assessment and Plan 76yo female with a PMHX atrial fibrillation on Coumadin, hx of CVA with residual right sided weakness, hypertension, rheumatoid arthritis, dyslipidemia , fibromyalgia and status post [employer] pacemaker implantation who presents to [facility] ED following a syncopal episode at home. //Syncope //Orthostatic hypotension. -Consult neurology, appreciate his assistance -Consult patients newspaper carrier Dr. Quinonez, appreciate his assistance -Obtain carotid ultrasound and 2-D echocardiogram -Obtain EEG study -Interrogate pacemaker -Holter monitor -Obtain orthostatic BP measurement -Neuro checks q4h -Continuous cardiac monitoring -Fall and seizure precautions = Awaiting EEG. Appreciate cardiology and neurology recommendations. Pending neurology and cardiology clearance, as well as improvement in nausea and vomiting.. = EEG negative. When patient stands up, systolic blood pressures down to the 80s. No compensatory increase in heart rate. Have discussed with cardiology, who will increase pacer rate. Appreciate assistance. //Intractable migraine headache. With nausea vomiting this morning Consult neurology. Will order Imitrex 1. Appreciate assistance. = Headache improved. Follow-up with neurology as outpatient. //Transaminitis. Simple cyst seen on liver ultrasound. Hepatitis profile pending.-Follow with primary care for simple cyst. -Hold statin therapy -Avoid hepatotoxic agents -Trend LFTs continue improving //Atrial fibrillation on Coumadin -Rate controlled -INR therapeutic at 2.2. Continue on current Coumadin dose. Pharmacy to manage. -Continue on amiodarone 200 mg daily and metoprolol 50 mg twice a day -Continue to monitor heart rate = INR 1.7. Subtherapeutic today. We will continue to monitor. //Hypertension, not well controlled -Resume patient on metoprolol 50mg BID -Monitor BP and adjust treatment accordingly //Hx of previous CVA with residual right-sided weakness -Continue on aspirin daily. Continue warfarin for A. fib. //DVT prophylaxis -Patient is on Coumadin. Discharge Planning pt still with severe orthostatic hypotension. Cardiology to increase pacemaker rate. Appreciate assistance. Hopefully patient can go home after this. Robson Gamboa MD Sep 15, 2017 10:44
[2017-09-15 11:19] LABS: HEPATITIS A AB IGM NEGATIVE (NEGATIVE); HEPATITIS B CORE AB IGM NEGATIVE (NEGATIVE); HEPATITIS B SURFACE ANTIGEN NEGATIVE (NEGATIVE); HEPATITIS C AB IgG NEGATIVE (NEGATIVE)
[2017-09-15] MEDS: AMIODARONE 200 MG TAB PO SCH (11:27)
--- NOTE | 2017-09-15 15:38 | HHI.DS ---
Discharge Summary Admission Date Sep 13, 2017 at 14:40 Discharge Date: Sep 15, 2017 Admitting Diagnosis Syncope (1) Orthostatic hypotension ICD Code: I95.1 - Orthostatic hypotension Procedures Pacemaker interrogation. rate was increased. No invasive procedures. Brief History - From Admission Written by Imelda Kellogg, acting as scribe for Dr. Gamboa on 09/13/17 at 14: 48. This is a 76yo female with a PMHX atrial fibrillation on Coumadin, hx of CVA with residual right sided weakness, hypertension, rheumatoid arthritis, dyslipidemia, fibromyalgia and status post [employer] pacemaker implantation who presents to [facility] ED following a syncopal episode at home. She reports sudden onset of generalized weakness while washing dishes earlier today. She went and sat down. Her son found her slumped over on the table. She reports associated tingling over the right side of her face. She denies any arrhythmia or palpitations. She endorses brief episode of midsternal chest pain last night. She reports similar episodes occurring for the past 2-3 days. She endorses intermittent headaches for the past week. She has a history of migraines and takes Maxalt. She was seen by a neurologist Dr. Durant one week ago. She reports high blood pressures at home. She denies any change in her medications. She had a similar episode in 2017 and was found to have atrial fibrillation with RVR following interrogation of her pacemaker was treated with increase in her metoprolol dose. In the ED, CT scan of the head was done showing an old infarct in the right cerebellar hemisphere no acute intracranial process noted. CBC/BMP: 09/15/17 0505 09/15/17 0505 Significant Findings Laboratory Tests Test 09/13/17 12:50 09/14/17 06:05 09/14/17 12:00 09/15/17 05:05 Monocytes (%) (Auto) 15.7 % (0.0-8.0) 12.5 % (0.0-8.0) 17.2 % (0.0-8.0) Monocytes # (Auto) 1.1 TH/MM3 (0-0.9) 1.0 TH/MM3 (0-0.9) 1.2 TH/MM3 (0-0.9) Prothrombin Time 22.3 SEC (9.8-11.6) 20.7 SEC (9.8-11.6) 17.4 SEC (9.8-11.6) Activated Partial Thromboplast Time 37.2 SEC (24.3-30.1) Albumin 2.9 GM/DL (3.4-5.0) 2.9 GM/DL (3.4-5.0) 2.6 GM/DL (3.4-5.0) Calcium Level 8.4 MG/DL (8.5-10.1) 8.1 MG/DL (8.5-10.1) Aspartate Amino Transf (AST/SGOT) 112 U/L (15-37) 93 U/L (15-37) 73 U/L (15-37) Alanine Aminotransferase (ALT/SGPT) 135 U/L (10-53) 137 U/L (10-53) 105 U/L (10-53) Sodium Level 133 MEQ/L (136-145) 132 MEQ/L (136-145) 134 MEQ/L (136-145) Estimat Glomerular Filtration Rate 55 ML/MIN (>89) 58 ML/MIN (>89) 53 ML/MIN (>89) Troponin I LESS THAN 0.02 NG/ML Random Glucose 112 MG/DL (74-106) Chloride Level 97 MEQ/L (98-107) C-Reactive Protein 0.80 MG/DL (0.00-0.30) Creatinine 1.01 MG/DL (0.50-1.00) Total Protein 6.1 GM/DL (6.4-8.2) Imaging Last Impressions Liver Ultrasound 09/14/17 0000 Signed Impressions: Service Date/Time: August 10:56 - CONCLUSION: 1. No acute finding is identified. 2. There is a simple appearing cyst in the left lobe of the liver measuring 2.6 cm. Lobo Holbrook MD Cervical Spine X-Ray 09/14/17 0000 Signed Impressions: Service Date/Time: August 14:15 - CONCLUSION: Degenerative disease with spondylosis. Stable cervical alignment during flexion and extension. Dionicio Skaggs MD Head CT 09/13/17 1301 Signed Impressions: Service Date/Time: Wednesday, September 13, 2017 13:46 - CONCLUSION: 1. Old infarct in the posterior medial aspect of the right cerebellar hemisphere. 2. Otherwise negative. Nothing acute. Dinesh Diamond MD Chest X-Ray 09/13/17 1301 Signed Impressions: Service Date/Time: Wednesday, September 13, 2017 13:09 - CONCLUSION: 1. No acute abnormality or significant interval change. Bautista Kolb MD Hospital Course Patient was found to have severe orthostatic hypotension with blood pressures going down 30 points with standing. This improved with increase in patient's pacemaker rate by cardiology. Patient also with headache, nausea and vomiting which improved with Imitrex. Neurology consulted. EEG negative. CT head with no acute findings. Follow with cardiology and neurology as outpatient. She was also found to have mild transaminitis. Liver ultrasound with simple appearing 2.6 cm cyst in the left lobe of the liver. Appetite is panel negative. Follow with primary care for this. For problem-based summary from most recent progress note, please see below. 76yo female with a PMHX atrial fibrillation on Coumadin, hx of CVA with residual right sided weakness, hypertension, rheumatoid arthritis, dyslipidemia , fibromyalgia and status post [employer] pacemaker implantation who presents to [facility] ED following a syncopal episode at home. //Syncope //Orthostatic hypotension. 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 Quinonez, appreciate his assistance -Obtain carotid ultrasound and 2-D echocardiogram -Obtain EEG study -Interrogate pacemaker -Holter monitor -Obtain orthostatic BP measurement -Neuro checks q4h -Continuous cardiac monitoring -Fall and seizure precautions = Awaiting EEG. Appreciate cardiology and neurology recommendations. Pending neurology and cardiology clearance, as well as improvement in nausea and vomiting.. = EEG negative. When patient stands up, systolic blood pressures down to the 80s. No compensatory increase in heart rate. Have discussed with cardiology, who will increase pacer rate. Appreciate assistance. //Intractable migraine headache. With nausea vomiting this morning Consult neurology. Will order Imitrex 1. Appreciate assistance. = Headache improved. Follow-up with neurology as outpatient. //Transaminitis. Simple cyst seen on liver ultrasound. Hepatitis profile pending.-Follow with primary care for simple cyst. -Hold statin therapy -Avoid hepatotoxic agents -Trend LFTs continue improving //Atrial fibrillation on Coumadin -Rate controlled -INR therapeutic at 2.2. Continue on current Coumadin dose. Pharmacy to manage. -Continue on amiodarone 200 mg daily and metoprolol 50 mg twice a day -Continue to monitor heart rate = INR 1.7. Subtherapeutic today. We will continue to monitor. //Hypertension, not well controlled -Resume patient on metoprolol 50mg BID -Monitor BP and adjust treatment accordingly //Hx of previous CVA with residual right-sided weakness -Continue on aspirin daily. Continue warfarin for A. fib. //DVT prophylaxis -Patient is on Coumadin. Discharge Planning pt still with severe orthostatic hypotension. Cardiology to increase pacemaker rate. Appreciate assistance. Hopefully patient can go home after this. Pt Condition on Discharge: Good Discharge Disposition: Discharge Home Discharge Time: > 30 minutes Discharge Instructions DIET: Follow Instructions for: Heart Healthy Diet Activities you can perform: Regular-No Restrictions Follow up Referrals: Cardiology - 1 Week with Sharri Quinonez MD Neurology - 1 Week with Satish Tanner MD PCP Follow-up - 1 Week with Lobo Mariano DO New Medications: Compr.stocking,Thigh,Reg,Large (Compression Thigh Stocking) 1 Each Each UNITS, #2 Wear if walking or standing. Continued Medications: Amiodarone (Amiodarone) 200 Mg Tab 200 MG PO AC LUNCH for Regulate Heart Beat, #30 TAB 0 Refills Aspirin (Aspirin) 81 Mg Chew 81 MG CHEW DAILY, TAB 0 Refills Metoprolol Tartrate (Metoprolol Tartrate) 25 Mg Tab 50 MG PO BID for Blood Pressure Management, #60 TAB 0 Refills Warfarin (Warfarin) 3 Mg Tab 3 MG PO DAILY for Blood Clot Prevention, #30 TAB 0 Refills Discontinued Medications: Simvastatin (Zocor) 40 Mg Tab 40 MG PO HS for Cholesterol Management, #30 TAB 0 Refills Robson Gamboa MD Sep 15, 2017 15:38
[2017-09-15] MEDS ORDERED: WARFARIN SOD 1 MG TAB PO ONE (16:00)
[2017-09-15] MEDS: WARFARIN SOD 3 MG TAB PO SCH (16:41)
--- NOTE | 2017-09-15 17:09 | PD.CARD.PN ---
Subjective Subjective Remarks No CP or SOB, feels better Objective Medications Current Medications Medications (Trade) Dose Ordered Sig/Polina Route Start Time Stop Time Status Last Admin (NS Flush) 2 ml UNSCH PRN IV FLUSH 09/13/17 14:45 (NS Flush) 2 ml BID IV FLUSH 09/13/17 21:00 09/15/17 08:38 (Cordarone) 200 mg AC LUNCH PO 09/14/17 11:00 09/15/17 11:27 (Aspirin Chew) 81 mg DAILY CHEW 09/14/17 09:00 09/15/17 08:38 (Lopressor) 50 mg BID PO 09/13/17 21:00 09/15/17 11:27 (Coumadin) 3 mg DAILY@1600 PO 09/14/17 16:00 09/15/17 16:41 (Pravachol) 80 mg HS PO 09/13/17 21:00 Future Hold Pharmacy Profile Note 0 ml @ 0 mls/hr UNSCH OTHER 09/13/17 14:45 (Zofran Inj) 4 mg Q6HR PRN IV PUSH 09/14/17 03:45 09/14/17 04:09 Vital Signs / I&O Vital Signs Date Time Temp Pulse Resp B/P (MAP) Pulse Ox O2 Delivery O2 Flow Rate FiO2 09/15/17 15:33 70 09/15/17 15:26 96.4 73 16 124/66 (85) 96 122/71 (88) 123/70 (87) 09/15/17 12:30 97.8 60 18 110/58 (75) 95 09/15/17 12:00 60 09/15/17 08:36 98.2 58 20 103/55 (71) 96 09/15/17 08:00 60 09/15/17 03:34 98.1 57 20 102/57 (72) 95 09/15/17 00:05 59 09/14/17 22:56 98.6 57 20 119/62 (81) 92 09/14/17 19:31 99.0 64 20 122/59 (80) 96 118/62 (80) 89/49 (62) 09/14/17 17:44 166/80 (108) 160/68 (98) 148/66 (93) I/O 2/15/18 2/15/18 09/14/17 09/15/17 09/15/17 09/15/17 07:00 15:00 23:00 07:00 15:00 23:00 Intake Total 240 ml Balance 240 ml Intake Oral 240 ml # Voids 1 Physical Exam GENERAL: In NAD. SKIN: Warm and dry. HEAD: Normocephalic. EYES: No scleral icterus. No injection or drainage. NECK: Supple, trachea midline. No JVD or lymphadenopathy. CARDIOVASCULAR: Regular rate and rhythm without murmurs, gallops, or rubs. RESPIRATORY: Breath sounds equal bilaterally. No accessory muscle use. GASTROINTESTINAL: Abdomen soft, non-tender, nondistended. MUSCULOSKELETAL: No cyanosis, or edema. Pacer site stable. Laboratory Laboratory Tests Test 09/15/17 05:05 White Blood Count 7.3 TH/MM3 Red Blood Count 4.27 MIL/MM3 Hemoglobin 12.8 GM/DL Hematocrit 37.8 % Mean Corpuscular Volume 88.5 FL Mean Corpuscular Hemoglobin 29.9 PG Mean Corpuscular Hemoglobin Concent 33.8 % Red Cell Distribution Width 16.3 % Platelet Count 258 TH/MM3 Mean Platelet Volume 9.4 FL Neutrophils (%) (Auto) 52.4 % Lymphocytes (%) (Auto) 28.3 % Monocytes (%) (Auto) 17.2 % Eosinophils (%) (Auto) 1.3 % Basophils (%) (Auto) 0.8 % Neutrophils # (Auto) 3.8 TH/MM3 Lymphocytes # (Auto) 2.1 TH/MM3 Monocytes # (Auto) 1.2 TH/MM3 Eosinophils # (Auto) 0.1 TH/MM3 Basophils # (Auto) 0.1 TH/MM3 CBC Comment DIFF FINAL Differential Comment Prothrombin Time 17.4 SEC Prothromb Time International Ratio 1.7 RATIO Blood Urea Nitrogen 14 MG/DL Creatinine 1.01 MG/DL Random Glucose 81 MG/DL Total Protein 6.1 GM/DL Albumin 2.6 GM/DL Calcium Level 8.1 MG/DL Phosphorus Level 3.1 MG/DL Magnesium Level 2.2 MG/DL Alkaline Phosphatase 78 U/L Aspartate Amino Transf (AST/SGOT) 73 U/L Alanine Aminotransferase (ALT/SGPT) 105 U/L Total Bilirubin 0.4 MG/DL Direct Bilirubin 0.1 MG/DL Sodium Level 134 MEQ/L Potassium Level 3.8 MEQ/L Chloride Level 99 MEQ/L Carbon Dioxide Level 28.7 MEQ/L Anion Gap 6 MEQ/L Estimat Glomerular Filtration Rate 53 ML/MIN Indirect Bilirubin 0.3 MG/DL Assessment and Plan Problem List: (1) Syncope ICD Codes: R55 - Syncope Status: Acute (2) Atrial fibrillation ICD Codes: I48.91 - Atrial fibrillation Status: Chronic (3) SSS (sick sinus syndrome) ICD Codes: I49.5 - Sick sinus syndrome (4) Pacemaker ICD Codes: Z95.0 - Presence of cardiac pacemaker Assessment and Plan Pacemaker eval w nl fx of the device and episodes of paroxysmal a fib. Device reprogrammed to lower rate of 70 ppm. Continue current program. Increase activity, PT. Neuro eval. OK to discharge from cardiac standpoint. Will schedule outpt f/u after discharge. Sharri Quinonez MD Sep 15, 2017 17:09
== END 2017-09-15 17:10 | disposition home or self-care (01) ==
LOC: NEPC 12:40 → NEDA 14:40 → NEPGCP 16:24
PROVIDERS: ADMIT Internal Medicine; ATTEND Internal Medicine
DX: I95.1 Orthostatic hypotension (principal); I48.0 Paroxysmal atrial fibrillation; I49.5 Sick sinus syndrome; G43.919 Migraine, unspecified, intractable, without status migrainosus; R74.0 Nonspecific elevation of levels of transaminase and lactic acid dehydrogenase [LDH]; R79.89 Other specified abnormal findings of blood chemistry; K76.89 Other specified diseases of liver; I10 Essential (primary) hypertension; I69.351 Hemiplegia and hemiparesis following cerebral infarction affecting right dominant side; I65.29 Occlusion and stenosis of unspecified carotid artery; M06.9 Rheumatoid arthritis, unspecified; K21.9 Gastro-esophageal reflux disease without esophagitis; E78.5 Hyperlipidemia, unspecified; M79.7 Fibromyalgia; Z95.0 Presence of cardiac pacemaker
CPT/HCPCS: 70450; 71045; 72040; 76705; 80048; 80053; 80069; 80074; 80076; 82550; 83735; 84484; 85025; 85610; 85730; 86140; 93005; 95819; 96374; 97162; 99285; G0378; G8987; G8988; J2405